=== PATIENT | female | born 1940 | race Caucasian/White ===

== ENCOUNTER 2018-05-26 08:55 | Day surgery (SDC) | payer MEDICARE, SELFPAY | END 2018-05-26 16:03 | disposition home or self-care (01) | PROVIDERS: Family Provider Family Medicine; PCP Family Medicine; Visit Provider Internal Medicine Cardiovascular Disease | DX: I25.10 Atherosclerotic heart disease of native coronary artery without angina pectoris (principal); I34.2 Nonrheumatic mitral (valve) stenosis; I34.0 Nonrheumatic mitral (valve) insufficiency; I48.0 Paroxysmal atrial fibrillation; I12.9 Hypertensive chronic kidney disease with stage 1 through stage 4 chronic kidney disease, or unspecified chronic kidney disease; N18.3 Chronic kidney disease, stage 3 (moderate); E78.5 Hyperlipidemia, unspecified; I27.20 Pulmonary hypertension, unspecified; M19.90 Unspecified osteoarthritis, unspecified site; E03.9 Hypothyroidism, unspecified; K21.9 Gastro-esophageal reflux disease without esophagitis; G47.33 Obstructive sleep apnea (adult) (pediatric); Z79.51 Long term (current) use of inhaled steroids; Z79.02 Long term (current) use of antithrombotics/antiplatelets; Z79.82 Long term (current) use of aspirin; Z79.899 Other long term (current) drug therapy | CPT/HCPCS: 93458; 99152; 99153; J7040; C1769; C1894; Q9967 ==

== ENCOUNTER → 2018-12-07 14:06 | Outpatient (CLI) | payer MEDICARE, SELFPAY ==
[2018-12-07 13:08] VITALS: BMI 42.3
[2018-12-07 16:21] LABS: Absolute Lymphocyte Count 2.38 X10^3/ul (0.83-4.51); Basophil# 0.04 X10^3/uL; Basophil% 0.4 % (0-1); Eosinophils% 2.1 % (0-5); Hematocrit 39.8 % (37-47); Hemoglobin 11.8 g/dl (12.0-15.0); Lymphocyte # 2.38 X10^3/ul (4.0); Lymphocyte % 24.6 % (19-41); Mean Corp Hgb Conc 29.6 g/gl (32-36); Mean Corpuscular Hgb 27.4 pg (27.0-32.0); Mean Corpuscular Volume 92.3 fL (81-99); Monocyte# 0.98 X10^3/uL; Monocyte% 10.1 % (0-10); Neutrophil # 6.03 X10^3/uL (2.7-7.7); Neutrophil % 62.4 % (47-70); Platelet Count 331 K/mm3 (150-450); RBC Distribution Width CV 14.6 % (11.6-14.6); RBC Distribution Width SD 47.8 fl (35.1-43.9); Red Blood Count 4.31 M/mm3 (4.2-5.4); White Blood Count 9.7 K/mm3 (4.4-11.0)
[2018-12-07 16:24] LABS: POSITIVE COUNT NO; POSITIVE DIFFERENTIAL NO; POSITIVE MORPHOLOGY NO
[2018-12-07 16:31] LABS: Anion Gap 10 (5-15); BUN 17 mg/dL (7-18); BUN/Creat Ratio 13.7 RATIO (10-20); Calcium,Total 8.4 mg/dL (8.5-10.1); Chloride 106 mmol/L (98-107); Creatinine, Serum 1.24 mg/dL (0.55-1.02); EST Glomerular Filtration Rate 44 mL/min (>60); Est Glom Filt Rate - Afr Amer 54 mL/min (>60); Glucose 93 mg/dL (74-106); Potassium 4.2 mmol/L (3.5-5.1); Sodium Level 143 mmol/L (136-145)
[2018-12-07 16:58] LABS: BNP,B-Type NATRIURETIC PEPTIDE 133.7 pg/mL (0-100)
== END ==
PROVIDERS: Family Provider Family Medicine; PCP Family Medicine; Visit Provider Physician Assistant Medical
DX: E78.5 Hyperlipidemia, unspecified (principal); I10 Essential (primary) hypertension; I25.10 Atherosclerotic heart disease of native coronary artery without angina pectoris; I27.20 Pulmonary hypertension, unspecified; I48.91 Unspecified atrial fibrillation; R06.00 Dyspnea, unspecified; I34.2 Nonrheumatic mitral (valve) stenosis
CPT/HCPCS: 36415; 80048; 83880; 85025

== ENCOUNTER → 2018-12-09 12:30 | Outpatient (CLI) | payer MEDICARE, SELFPAY ==
[2018-12-07 13:08] VITALS: BMI 42.3
== END ==
PROVIDERS: Family Provider Family Medicine; PCP Family Medicine; Referring Provider Physician Assistant Medical; Visit Provider Physician Assistant Medical
DX: I48.91 Unspecified atrial fibrillation (principal); R06.00 Dyspnea, unspecified
CPT/HCPCS: 93225; 93226

== ENCOUNTER → 2019-01-18 | Outpatient (CLI) | payer MEDICARE, SELFPAY ==
[2019-01-18 13:38] VITALS: BMI 41.3
--- NOTE | 2019-01-18 15:20 | RAD_ITS ---
STUDY: X-RAY CHEST REASON FOR EXAM: Female, 78 years old. Shortness of breath with atrial fibrillation. TECHNIQUE: PA and lateral views of the chest. COMPARISON: January 28, 2017. FINDINGS: The lungs are clear and expanded. There is no demonstrated pleural abnormality. Normal size heart. Normal mediastinum and kain. Normal visualized pulmonary arteries. There is atherosclerotic calcification of the aortic arch with tortuosity. There is mild dextroscoliosis and degenerative changes of the thoracic spine. There is degenerative osteoarthritis of the bilateral shoulders. There is no demonstrated abnormality of the visualized soft tissue structures of the upper abdomen. RAD/Chest PA and Lateral IMPRESSION: No acute cardiopulmonary disease or major interval change. Electronically Signed: Mark Sky DO at 16:17 EDT Tel [phone], Service support ,
[2019-01-18 16:37] LABS: Anion Gap 3 (5-15); BUN 24 mg/dL (7-18); BUN/Creat Ratio 19.5 RATIO (10-20); Calcium,Total 8.5 mg/dL (8.5-10.1); Chloride 109 mmol/L (98-107); Creatinine, Serum 1.23 mg/dL (0.55-1.02); EST Glomerular Filtration Rate 45 mL/min (>60); Est Glom Filt Rate - Afr Amer 54 mL/min (>60); Glucose 91 mg/dL (74-106); Potassium 4.1 mmol/L (3.5-5.1); Sodium Level 140 mmol/L (136-145)
== END | disposition home or self-care (01) ==
PROVIDERS: Family Provider Family Medicine; PCP Family Medicine; Referring Provider Physician Assistant Medical; Visit Provider Physician Assistant Medical
DX: I10 Essential (primary) hypertension (principal); I25.10 Atherosclerotic heart disease of native coronary artery without angina pectoris; I48.0 Paroxysmal atrial fibrillation
CPT/HCPCS: 36415; 71046; 80048

== ENCOUNTER 2019-01-19 09:50 | Day surgery (SDC) | payer MEDICARE, SELFPAY ==
--- NOTE | 2019-01-15 09:50 | HP_ITS ---
Intake Intake Visit Reasons: left knee Chief Complaint: f/u left knee Allergies duloxetine [From Cymbalta] Allergy (Verified 09/10/18 09:19) Unknown tramadol Allergy (Verified 09/10/18 09:19) unknown Medications citalopram 40 mg tablet 20 mg PO DAILY 06/29/18 [History Confirmed 11/16/18] folic acid 1 mg tablet 1 mg PO DAILY 06/29/18 [History Confirmed 11/16/18] hydroxychloroquine 200 mg tablet 200 mg PO DAILY tab 06/29/18 [History Confirmed 11/16/18] meloxicam 7.5 mg tablet 7.5 mg PO DAILY 06/29/18 [History Confirmed 11/16/18] methocarbamol 500 mg tablet 500 mg PO ONCE 06/29/18 [History Confirmed 11/16/18] tramadol 50 mg tablet 50 mg PO Q8H PRN #30 tab 09/15/18 [Rx Confirmed 11/16/18] isoniazid 300 mg tablet 300 mg PO DAILY 10/20/18 [History Confirmed 11/16/18] HPI left knee: Surgical H&P: Yes Details: Parts of this documentation were recorded by a scribe, this documentation accurately reflects the service provided and the decisions made by me, Cee Miller, 01/15/19 0910. AUGUSTIN SANCHEZ is a 65 year old F here today for left knee pain that patient has had since 06/2018. Patient has been receiving injections and using bracing and has been getting some relief from this and was seen by dr. wheeler in nov for the knee where he recommended continuing conservative tx. Patient has a large palpable cyst to the posterior knee and has painful clicking at the anterior lower patella. Has had MRI in 10/2018 of the left knee. Last injection was in September of 2018. ROS Const Reports system reviewed and no additional complaints, except as docu Eyes Reports system reviewed and no additional complaints, except as docu ENT Reports system reviewed and no additional complaints, except as docu Card Reports system reviewed and no additional complaints, except as docu Resp Reports system reviewed and no additional complaints, except as docu GI Reports system reviewed and no additional complaints, except as docu Musc Reports as per HPI Skin/Breast Reports system reviewed and no additional complaints, except as docu Neuro Yes system reviewed and no additional complaints, except as docu Psych Reports system reviewed and no additional complaints, except as docu Endo Reports system reviewed and no additional complaints, except as docu Obdulio/Lymph Reports system reviewed and no additional complaints, except as docu Aller/Immun Reports system reviewed and no additional complaints, except as docu Ortho Exam Left Knee Knee ROM: Yes ROM-Extension -20 to 0, Yes ROM-Flexion 0-140 Examination: Yes med jt line tenderness, Yes Pain with flexion Assessment & Plan Problems 1. Derangement of medial meniscus of left knee M23.304 2. 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 Closed subchondral insufficiency fracture of condyle of femur M84.453A Plan Reviewed recent MRI and explained that there is large Moraes's cyst with bony edema with insufficient fracture noted. Her treatment options are do nothing, brace use, steroid injection or gel injections, PT, oral nsaids or knee arthroscopy. Reviewed the surgical procedure, non weight bearing post op for two weeks and her ability to walk during her overseas travel in March and patient has failed conservative treatment. Instructed to stop taking Meloxicam. Reviewed the pre-operative plans with the patient. Risks and benefits of the procedure were fully explained, including but not limited to infection, neurovascular injury, continued pain, arthritis, stiffness, need for further surgery, re-injury, DVT, PE, general risks of anesthesia, and loss of limb or life. The patient understands all the risks and does wish to proceed with written consent. Follow up post op or sooner if pain, swelling, numbness or associated symptoms, or concerns develop. All questions answered. Patient in agreement of plan. 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
[2019-01-18 13:38] VITALS: BMI 41.3
--- NOTE | 2019-01-18 15:36 | HP_ITS ---
HPI HPI Surgical H&P: Yes Details: TRANG LARSON, is a 77 F who presents to the office today for a cardiovascular follow-up. She has a history of pulmonary hypertension, mitral valve disease, atrial fibrillation and obstructive sleep apnea. When I had seen patient 6 weeks ago she was concerned about her continued shortness of breath. She was noted to be in atrial fibrillation 100% of the time. We did discuss a cardioversion however she was going out of town, she has since returned and would like to proceed with a cardioversion due to her continued shortness of breath. Intake Vital Signs 01/18/19 Height 5 ft 3 in 01/18/19 Weight: 233 lb 01/18/19 Body Mass Index (BMI) 41.3 01/18/19 Blood Pressure 123/67 H 01/18/19 Blood Pressure Location Lt brachial 01/18/19 Blood Pressure Position Sitting 01/18/19 Respiratory Rate 18 01/18/19 Pulse Rate 62 01/18/19 Pulse Source Monitor 01/18/19 Pulse Ox 96 01/18/19 Body Mass Index (BMI) 42.3 Intake Visit Reasons: 6 wk f/up Wearing Apparel Folder Required: No Accompanied by: Daughter Is patient in pain?: Yes (heaviness in center of chest) Pain scale (1-10): 5 Allergies sulfasalazine [From Azulfidine] Allergy (Intermediate, Verified 01/18/19 13:46) Hives Penicillins [PCN] Allergy (Verified 01/18/19 13:46) Hives Sulfa (Sulfonamide Antibiotics) Allergy (Verified 01/18/19 13:46) Hives Medications Lansoprazole [Prevacid] 15 mg PO DAILY 01/28/17 [History Confirmed 01/18/19] Apixaban [Eliquis] 2.5 mg PO BID tab 07/31/17 [Rx Confirmed 01/18/19] lysine 500 mg tablet 500 mg PO DAILY PRN 05/18/18 [History Confirmed 01/18/19] gabapentin 300 mg capsule 300 mg PO TIDCM PRN 09/21/18 [History Confirmed 01/18/19] atorvastatin 20 mg tablet 20 mg PO QDAY #90 tab 10/08/18 [Rx Confirmed 01/18/19] flecainide 100 mg tablet 100 mg PO BID #180 tab 10/08/18 [Rx Confirmed 01/18/19] diltiazem CD 120 mg capsule,extended release 24 hr 120 mg PO DAILY #90 cap 10/12/18 [Rx Confirmed 01/18/19] furosemide 40 mg tablet 40 mg PO QDAY PRN tab 12/07/18 [History Confirmed 01/18/19] levothyroxine 112 mcg tablet 112 mcg PO DAILY 12/07/18 [History Confirmed 01/18/19] montelukast 10 mg tablet 10 mg PO QPM 12/07/18 [History Confirmed 01/18/19] Ejection fraction %: 60 to 64 PFSH Medical History Nonrheumatic mitral (valve) stenosis (Chronic) CKD (chronic kidney disease) stage 3, GFR 30-59 ml/min (Chronic) Atherosclerotic heart disease of [place] coronary artery without angina pectoris (Chronic) Nonrheumatic mitral valve regurgitation (Chronic) Osteoarthritis (Chronic) Hypothyroid (Chronic) Arthritis (Chronic) GERD (gastroesophageal reflux disease) (Chronic) Asthma (Chronic) Long-term use of high-risk medication (Chronic) Dyspnea, unspecified (Chronic) PABLO (obstructive sleep apnea) (Chronic) Atrial fibrillation (Chronic) Pulmonary hypertension (Chronic) HLD (hyperlipidemia) (Chronic) HTN (hypertension) (Chronic) History of hysterectomy (Resolved) ODILIA (acute kidney injury) (Inactive) Encounter for monitoring anti-arrhythmic therapy (Inactive) Renal insufficiency (Inactive) Surgical History History of bilateral knee replacement (Resolved) History of cardiac catheterization (Resolved) History of carpal tunnel surgery (Resolved) History of cataract removal with insertion of prosthetic lens (Resolved) History of cholecystectomy (Resolved) History of rotator cuff surgery (Resolved) Tumor of ovary (Resolved) Family History Mother Hypertension Myocardial infarction Sister Diabetes Paroxysmal atrial fibrillation Brother CVA (cerebral vascular accident) Alcohol abuse Cancer Liver CAD (coronary artery disease) Father Alzheimer disease Brother CAD (coronary artery disease) CABG Social History Smoking Status: Never smoker second hand exposure: No alcohol intake: never substance use type: does not use caffeine: Yes Type: coffee Number of servings: 2 Assessment & Plan 1. Paroxysmal atrial fibrillation I48.0 Plan flecaide dose needs refill Orders Orders: Cardioversion Today Basic Metabolic Profile (BMP) Today Chest PA and Lateral Today 2. Atherosclerosis of [place] coronary artery of [place] heart without angina pectoris I25.10 Plan Stable, from a cardiac standpoint patient does not have any symptoms of angina. We recommend that they continue with current aggressive medical management and risk factor modification. Orders Orders: Cardioversion Today Basic Metabolic Profile (BMP) Today Chest PA and Lateral Today 3. Essential hypertension I10 Plan Blood pressure is well controlled on current medications, we do not recommend any changes at this time. Orders Orders: Cardioversion Today Basic Metabolic Profile (BMP) Today Chest PA and Lateral Today 4. Hyperlipidemia, unspecified hyperlipidemia type E78.5 Plan Patient will continue with her low-dose statin 5. Nonrheumatic mitral (valve) stenosis I34.2 Plan Patient has been evaluated by CT surgery, they did not feel that her valve warranted surgery at that time. Do not feel that a repeat echocardiogram needs done at this time. For now we will continue to monitor Plan Detail Follow Up 3 Months (MMM) 1 Year (PFM) 01/18/19 (1 week EKG) Coding Level of Care Code Off vis,est,level 3 Diagnoses Paroxysmal atrial fibrillation I48.0 ??Atrial fibrillation type: paroxysmal Atherosclerosis of [place] coronary artery of [place] heart without angina pectoris I25.10 ??[place] vs. transplanted heart: [place] heart Essential hypertension I10 ??Hypertension type: essential hypertension Hyperlipidemia, unspecified hyperlipidemia type E78.5 ??Hyperlipidemia type: unspecified Nonrheumatic mitral (valve) stenosis I34.2 Coding Level of Care Code Off vis,est,level 3 Diagnoses Paroxysmal atrial fibrillation I48.0 ??Atrial fibrillation type: paroxysmal Atherosclerosis of [place] coronary artery of [place] heart without angina pectoris I25.10 ??[place] vs. transplanted heart: [place] heart Essential hypertension I10 ??Hypertension type: essential hypertension Hyperlipidemia, unspecified hyperlipidemia type E78.5 ??Hyperlipidemia type: unspecified Nonrheumatic mitral (valve) stenosis I34.2 Supplemental Info Supplemental Information She had a transthoracic echocardiogram on 10/01/2017. The results are as noted below. Interpretation Summary Left ventricular systolic function is normal. The estimated ejection fraction is 60 %. The left atrium is moderately enlarged. There is moderate to severe mitral annular calcification. Extension of the mitral annular calcification onto the mitral valve leaflets. Mild-Moderate mitral valve stenosis. Mild-Moderate (1-2+) mitral valve insufficiency. Mild tricuspid valve insufficiency. Aortic sclerosis, no stenosis. Calcified aortic root. Right ventricular systolic pressure estimated to be 43 mmHg c/w pulmonary hypertension. Transmitral diastolic flow velocities suggest diastolic dysfunction (pseudonormal pattern). She had a transesophageal echocardiogram performed on 04/22/2017. The results are as noted below. Interpretation Summary Left ventricular systolic function is normal. The estimated ejection fraction is 65 %. Normal systolic function. The left atrium is mildly enlarged. There is no sponatenous contrast in the left atrium. No thrombus is detected in the left atrial appendage. There is moderate to severe mitral annular calcification. Extension of the mitral annular calcification onto the posterior mitral valve leaflet. Mild-Moderate mitral valve stenosis. Moderate to moderately-severe mitral valve regurgitation. Moderate (2+) eccentric tricuspid valve insufficiency. Mild diffuse aortic valve thickening. Calcified aortic root. Normal descending aorta. Bubble contrast study negative for right to left interatrial shunt. She had a right heart catheterization performed on 03/28/2017. The results are as noted below. RIGHT HEART ASSESSMENT Thermal CC: 5.76 Thermal Cl: 2.76 Marcell CC: 6.29 Marcell Cl: 3.01 PW: 21/34 18 PA: 45/8 26 RV: 51/3 10 RA: 8/6 4 PVR: 111 Right Heart pressures - eleted Pulmonary Hypertension Intracardiac shunting: None VALVE FINDINGS: Moderate to severe mitral annular calcification AIR REST ECG 10:55:59 ECG 11:38:13 RA 8/6 (4) SV 12:08:48 RV5I/3, 10 12:09:29 PA 45/8 (26) PA 12:10:07 [place] [address] (18) PV 12:10:26 Type SV C0(I/m) CI(I/m/ HR Time AIR REST Thermal 91.40 5.76 2.76 63 10:55:59 Marcell 99.80 6.29 3.01 63 10:55:59 Label % 02 Pres/Loc Time AIR REST AC 94 PV 12:20:43 IVC 66 SV 12:21:07 SVC 63 12:21:14 PA 63 PA 12:21:20 She had a previous cardiac catheterization performed at [facility] in [facility] on 06/25/2016. Per the report this was performed via the right radial artery. CORONARY_ANGlO/FINDINGS Discrete 55% ostial lesion in 1st diagonal Luminal Irregularities 10% proximal lesion in circumflex Tubular 25% proximal lesion in RCA Ventricular Function: LV Gram? 65% EF with normal wall motion Valve Function: Valve functions within normal limits. Dominance: < Right Dominant She had a 30 day event monitor performed and was reported on 07/20/2017 is demonstrating sinus rhythm with episodes of paroxysmal atrial fibrillation She underwent CT surgery consultation at [facility] on 05/14/2017. Per the report it was recommended that she continue medical management and pursue additional nonvalvular related issues for her shortness of breath and dyspnea including noncardiac issues. She was told she was not an ideal candidate for CT surgery with respect to her valvular heart disease based upon her significant calcification involving her mitral valve apparatus. Diagnostics Electrocardiogram 12/07/18 Echocardiogram 10/01/17 Cardiac Catheterization 05/26/18
[2019-01-19 08:06] VITALS: BMI 41.3
--- NOTE | 2019-01-19 12:59 | PCM.OPRPT ---
Problem List (1) Atrial fibrillation Status: Chronic Qualifiers: Atrial fibrillation type: persistent Qualified Code(s): I48.1 - Persistent atrial fibrillation Report of Operation Date of Procedure: 01/19/19 Pre-Operative Diagnosis: Atrial fibrillation Post-Operative Diagnosis: Atrial fibrillation Surgery/Procedure Performed:: Synchronized biphasic DC cardioversion Description of Surgical Findings:: Synchronized biphasic DC cardioversion Type of Anesthesia:: IV Sedation Anesthesiologist: Israel Sanchez Special Medications: Propofol 60 mg IV push total Specimen's removed: N/A Description of Procedure: Procedure: Synchronized Biphasic DC Cardioversion Indications: Atrial fibrillation Consent: [Per the Patient] Anesthesia: per Dr. Sanchez of pulmonology and critical care medicine with propofol 60 mg IV push total Procedure: Synchronized Biphasic DC Cardioversion: 200 J x1: Result: Atrial fibrillation Synchronized biphasic DC cardioversion: 300 J x1: Result: Sinus rhythm Complications: no apparent complications This note was generated with That{img} dictation software. It may contain incorrect words, spelling, and punctuation that were not noted in checking the note before signing. - Complications No apparent complications - Admit VTE Documentation VTE Present on Admission: No VTE Mechan Device Prophylaxis: None VTE Pharm Prophylaxis ordered?: No Reason prophylaxis not ordered:: Treatment Not Indicated - Patient on oral systemic anticoagulant therapy
--- NOTE | 2019-01-19 14:03 | PCM.OP.PRO ---
Problem List (1) Asthma Status: Chronic (2) Atherosclerotic heart disease of [place] coronary artery without angina pectoris Status: Chronic Qualifiers: [place] vs. transplanted heart: [place] heart Qualified Code(s): I25.10 - Atherosclerotic heart disease of [place] coronary artery without angina pectoris (3) Atrial fibrillation Status: Chronic Qualifiers: Atrial fibrillation type: persistent Qualified Code(s): I48.1 - Persistent atrial fibrillation (4) CKD (chronic kidney disease) stage 3, GFR 30-59 ml/min Status: Chronic (5) GERD (gastroesophageal reflux disease) Status: Chronic (6) HLD (hyperlipidemia) Status: Chronic Qualifiers: Hyperlipidemia type: unspecified Qualified Code(s): E78.5 - Hyperlipidemia, unspecified (7) HTN (hypertension) Status: Chronic Qualifiers: Hypertension type: essential hypertension Qualified Code(s): I10 - Essential (primary) hypertension (8) Hypothyroid Status: Chronic (9) Long-term use of high-risk medication Status: Chronic (10) Nonrheumatic mitral (valve) stenosis Status: Chronic (11) Nonrheumatic mitral valve regurgitation Status: Chronic (12) PABLO (obstructive sleep apnea) Status: Chronic (13) Osteoarthritis Status: Chronic (14) Pulmonary hypertension Status: Chronic Procedure Report Date of Procedure: 01/19/19 - Conscious sedation CONSCIOUS SEDATION REPORT BRIEF HISTORY OF PRESENT ILLNESS: The patient is an 78-year-old female who presented to [facility] for an elective outpatient cardioversion due to underlying atrial fibrillation. The patient reports no PO intake since midnight. The patient does have a history of obstructive sleep apnea. The patient reports no history of smoking and COPD. The patient denies any recent constitutional symptoms such as fevers, chills, nausea or vomiting. The patient denies previous anesthetic complications. Patient's last known ejection fraction was 60%. Patient does have a history of a previous cardioversion without complication. PHYSICAL EXAMINATION: VITAL SIGNS: Reviewed and were acceptable. GENERAL: The patient is a female, in no apparent distress, speaking in full sentences. HEENT: Normocephalic, atraumatic. Mucous membranes are moist and pink. Good mouth opening noted. Trachea is midline. Good neck mobility. MP IV CHEST: S1, S2 irregularly irregular. No murmurs, rubs or gallops were noted. LUNGS: Clear to auscultation bilaterally without appreciable wheezes, rales or rhonchi. ABDOMEN: Soft, nontender, nondistended. Positive bowel sounds. EXTREMITIES: There is no clubbing, cyanosis or edema. ASA Class: II DESCRIPTION OF PROCEDURE: After confirmation of informed consent, the patient's anesthesia plan was reviewed in detail. Propofol was chosen. Risks and benefits were reviewed and the patient agreed to proceed. At 12:38 PM, the patient was given 40 mg of propofol. The patient required a total of 60 mg of propofol throughout the procedure to achieve appropriate sedation. The patient achieved an appropriate level of sedation and received 2 attempt s synchronized cardioversion, at 200 J and [address] Osorio at the bedside. This was successful in achieving normal sinus rhythm. The patient was monitored until 12:44 PM, at which time the patient reached their baseline mental status and function. The patient tolerated the procedure well. COMPLICATIONS: None ESTIMATED BLOOD LOSS: None RECOMMENDATIONS: Okay to recover in usual fashion. Code Visit 9xxxx: Other Procedure See Report - [id number]
--- NOTE | 2019-01-19 14:07 | PRO.PCM_ITS ---
Problem List (1) Asthma Status: Chronic (2) Atherosclerotic heart disease of [place] coronary artery without angina pe ctoris Status: Chronic Qualifiers: [place] vs. transplanted heart: [place] heart Qualified Code(s): I25.10 - Atherosclerotic heart disease of [place] coronary artery without angina pectoris (3) Atrial fibrillation Status: Chronic Qualifiers: Atrial fibrillation type: persistent Qualified Code(s): I48.1 - Persistent atrial fibrillation (4) CKD (chronic kidney disease) stage 3, GFR 30-59 ml/min Status: Chronic (5) GERD (gastroesophageal reflux disease) Status: Chronic (6) HLD (hyperlipidemia) Status: Chronic Qualifiers: Hyperlipidemia type: unspecified Qualified Code(s): E78.5 - Hyperlipidemia, unspecified (7) HTN (hypertension) Status: Chronic Qualifiers: Hypertension type: essential hypertension Qualified Code(s): I10 - Es sential (primary) hypertension (8) Hypothyroid Status: Chronic (9) Long-term use of high-risk medication Status: Chronic (10) Nonrheumatic mitral (valve) stenosis Status: Chronic (11) Nonrheumatic mitral valve regurgitation Status: Chronic (12) PABLO (obstructive sleep apnea) Status: Chronic (13) Osteoarthritis Status: Chronic (14) Pulmonary hypertension Status: Chronic Procedure Report Date of Procedure: 01/19/19 - Conscious sedation CONSCIOUS SEDATION REPORT BRIEF HISTORY OF PRESENT ILLNESS: The patient is an 78-year-old female who presented to [facility] for an elective outpatient cardioversion due to underlying atrial fibrillation. The patient reports no PO intake since midnight. The patient does have a history of obstructive sleep apnea. The patient reports no history of smoking and COPD. The patient denies any recent constitutional symptoms such as fevers, chills, nausea or vomiting. The patient denies previous anesthetic complications. Patient's last known ejection fraction was 60%. Patient does have a history of a previous cardioversion without complication. PHYSICAL EXAMINATION: VITAL SIGNS: Reviewed and were acceptable. GENERAL: The patient is a female, in no apparent distress, speaking in full sentences. HEENT: Normocephalic, atraumatic. Mucous membranes are moist and pink. Good mouth opening noted. Trachea is midline. Good neck mobility. MP IV CHEST: S1, S2 irregularly irregular. No murmurs, rubs or gallops were noted. LUNGS: Clear to auscultation bilaterally without appreciable wheezes, rales or rhonchi. ABDOMEN: Soft, nontender, nondistended. Positive bowel sounds. EXTREMITIES: There is no clubbing, cyanosis or edema. ASA Class: II DESCRIPTION OF PROCEDURE: After confirmation of informed consent, the patient's anesthesia plan was reviewed in detail. Propofol was chosen. Risks and benefits were reviewed and the patient agreed to proceed. At 12:38 PM, the patient was given 40 mg of propofol. The patient required a total of 60 mg of propofol throughout the procedure to achieve appropriate sedation. The patient achieved an appropriate level of sedation and received 2 attempt s synchronized cardioversion, at 200 J and [address] Osorio at the bedside. This was successful in achieving normal sinus rhythm. The patient was monitored until 12:44 PM, at which time the patient reached their baseline mental status and function. The patient tolerated the procedure well. COMPLICATIONS: None ESTIMATED BLOOD LOSS: None RECOMMENDATIONS: Okay to recover in usual fashion. Code Visit 9xxxx: Other Procedure See Report - [id number]
== END 2019-01-19 13:45 | disposition home or self-care (01) ==
LOC: CLSP 09:51
PROVIDERS: Family Provider Family Medicine; PCP Family Medicine; Referring Provider Internal Medicine Cardiovascular Disease; Visit Provider Internal Medicine Cardiovascular Disease
DX: I48.0 Paroxysmal atrial fibrillation (principal); I25.10 Atherosclerotic heart disease of native coronary artery without angina pectoris; E78.5 Hyperlipidemia, unspecified; I12.9 Hypertensive chronic kidney disease with stage 1 through stage 4 chronic kidney disease, or unspecified chronic kidney disease; N18.3 Chronic kidney disease, stage 3 (moderate); M19.90 Unspecified osteoarthritis, unspecified site; E03.9 Hypothyroidism, unspecified; K21.9 Gastro-esophageal reflux disease without esophagitis; J45.909 Unspecified asthma, uncomplicated; G47.33 Obstructive sleep apnea (adult) (pediatric); I27.20 Pulmonary hypertension, unspecified; Z79.02 Long term (current) use of antithrombotics/antiplatelets; Z79.899 Other long term (current) drug therapy
CPT/HCPCS: 92960; 93005; J7040

== ENCOUNTER 2019-12-14 10:50 | Day surgery (SDC) | payer MEDICARE, SELFPAY ==
[2019-12-13 10:04] VITALS: BMI 41.1
--- NOTE | 2019-12-13 10:55 | RAD_ITS ---
STUDY: X-RAY CHEST REASON FOR EXAM: Female, 79 years old. cough, shortness of breath x 1 week TECHNIQUE: Frontal and lateral views of the chest. COMPARISON: 01/18/2019 FINDINGS: Left midlung atelectasis. There is no demonstrated pleural abnormality. Normal size heart. Normal mediastinum and kain. Normal visualized pulmonary arteries. Normal visualized aortic arch and descending thoracic aorta. Normal visualized thoracic spine. Normal visualized ribs, clavicles, and shoulders. Cholecystectomy clips. RAD/Chest PA and Lateral IMPRESSION: Left midlung atelectasis. Electronically Signed: Dave Leach MD at 12:44 EDT Tel , Service support ,
[2019-12-13 12:12] LABS: Anion Gap 4 (5-15); BUN 12 mg/dL (7-18); BUN/Creat Ratio 11.2 RATIO (10-20); Calcium,Total 8.6 mg/dL (8.5-10.1); Chloride 110 mmol/L (98-107); Creatinine, Serum 1.07 mg/dL (0.55-1.02); EST Glomerular Filtration Rate 52 mL/min (>60); Est Glom Filt Rate - Afr Amer 63 mL/min (>60); Glucose 76 mg/dL (74-106); Potassium 3.7 mmol/L (3.5-5.1); Sodium Level 143 mmol/L (136-145)
[2019-12-13 13:01] VITALS: BMI 41.1
--- NOTE | 2019-12-14 09:11 | PCM.HP.BLA ---
<Osito Benson - Last Filed: 12/14/19 09:11> History and Physical Date of Admission: 12/14/19 HPI History of Present Illness Details: TRANG LARSON, is a 79 white female who presents to the [facility] today for an outpatient cardioversion. She has a history of pulmonary hypertension, mitral valve disease, atrial fibrillation and obstructive sleep apnea. Pt sts that she has been in Afib since last friday. She she notes this to be true d/t her HR monitor at home. She notes that she has had a cough since Friday. She was in to see her PCP and in the [facility]. She was given prednisone. She feels the Afib this past week because she has been more SOB with exertion, especially when she is carrying something. She does not have orthopnea. She does occasionally have dizziness- she feels that this is from her coughing. She does not have any chest pain. She does not have any edema. Her dtr has had a lung transplant last week. Intake Vital Signs: See EMR Intake Visit Reasons: DCCV Non Destructive Evaluation Manager Required: No Is patient in pain?: No Allergies sulfasalazine [From Azulfidine] Allergy (Intermediate, Verified 12/13/19 10:04) Hives Penicillins [PCN] Allergy (Verified 12/13/19 10:04) Hives Sulfa (Sulfonamide Antibiotics) Allergy (Verified 12/13/19 10:04) Hives Medications See EMR [facility] Medical History History of cardioversion (Chronic ~01/2019) Hypothyroidism (Chronic) Paroxysmal atrial fibrillation (Acute) Essential hypertension (Chronic) Nonrheumatic mitral (valve) stenosis (Chronic) CKD (chronic kidney disease) stage 3, GFR 30-59 ml/min (Chronic) Atherosclerotic heart disease of [place] coronary artery without angina pectoris (Chronic) Nonrheumatic mitral valve regurgitation (Chronic) GERD (gastroesophageal reflux disease) (Chronic) Asthma (Chronic) Long-term use of high-risk medication (Chronic) Dyspnea, unspecified (Chronic) PABLO (obstructive sleep apnea) (Chronic) Pulmonary hypertension (Chronic) HLD (hyperlipidemia) (Chronic) Arthritis (Chronic) Osteoarthritis (Chronic) ODILIA (acute kidney injury) (Inactive) Encounter for monitoring anti-arrhythmic therapy (Inactive) Renal insufficiency (Inactive) Surgical History History of cholecystectomy (Resolved) History of hysterectomy (Resolved) History of bilateral knee replacement (Resolved) History of cardiac catheterization (Resolved) History of carpal tunnel surgery (Resolved) Tumor of ovary (Resolved) History of cataract removal with insertion of prosthetic lens (Resolved) History of rotator cuff surgery (Resolved) Family History Mother Hypertension Myocardial infarction Sister Diabetes Paroxysmal atrial fibrillation Brother CVA (cerebral vascular accident) Alcohol abuse Cancer Liver CAD (coronary artery disease) Father Alzheimer disease Brother CAD (coronary artery disease) CABG Social History (Updated 12/13/19 @ 15:09 by AQUILES Rodriguez) Smoking Status: Never smoker second hand exposure: No alcohol intake: never substance use type: does not use caffeine: Yes Type: coffee Number of servings: 2 ROS Const Const: Positive for fatigue; negative for weakness, fever(s) or headache(s) Eyes Eyes: Negative for blind spots, loss of peripheral vision or transient loss of vision ENT ENT: Negative for headache(s), dizziness, tinnitus or Nosebleed/epistaxis Cardio Chest Pain: No Palpitations: Yes Edema: None Muscle aches with walking: None Resp Respiratory: Positive for SOB with activity; negative for SOB at rest, SOB orthopnea\SOB lying down or Cough GI GI: Negative nausea, vomiting, heartburn or vomiting blood/hematemesis : Negative for hematuria Musc Musc: Negative for muscle aches/ myalgia Neuro Neuro: Negative for dizziness, lightheadedness, near syncope, syncope, orthostatic symptoms, headache(s) or weakness Obdulio Hematologic/Lymphatic: Negative for easy bleeding Endo Endo: Positive for fatigue Cardiology Exam Const Appearance: cooperative, no acute distress and well developed Orientation: alert, awake and oriented x3 Head Head: normocephalic and atraumatic Mouth: moist mucous membranes Eyes General: appearance normal, both eyes and all related structures Conjunctivae: conjunctivae normal Pupils: PERRL EOM: EOM intact bilaterally Neck Neck: normal visual inspection, no lymphadenopathy and no JVD Carotids: Negative bruit Neck Mass: Negative Neck mass Chest Chest inspection: normal inspection of the chest and symmetric chest movement Auscultation: Bilateral: Clear to Auscultation Cardio Palpation: normal PMI Rate: regular rate Rhythm: irregularly irregular Heart sounds: S1 normal, S2 normal and murmur; negative rub or gallop Murmur: Grade 2/6 and mid systolic GI GI: normal to inspection, soft, no hepatosplenomegaly and bowel sounds present; negative tender Neuro General: alert, awake, oriented x3, CN's II-XI intact bilaterally and moves all extremities Extremities Pulses: Normal: Right Posterior Tibial Pulse, Left Posterior Tibial Pulse, Right Radial Pulse, Left Radial Pulse Lower Extremity Edema: None: Bilateral Psych Psychological: normal affect Assessment & Plan 1. Atrial fibrillation, persistent I48.19 Plan Patient unfortunately is very symptomatic with her atrial fibrillation. It appears that this is more persistent since last week. Patient has been anticoagulated and this has not been interrupted. Her heart rate is controlled. Would like to proceed with a cardioversion for patient. She will follow-up accordingly after. 2. Atherosclerosis of [place] coronary artery of [place] heart without angina pectoris I25.10 Plan Stable, from a cardiac standpoint patient does not have any symptoms of angina. We recommend that they continue with current aggressive medical management and risk factor modification. 3. Hyperlipidemia, unspecified hyperlipidemia type E78.5 Plan Patient will continue with her low-dose statin 4. Nonrheumatic mitral (valve) stenosis I34.2 Plan This has been monitored closely. Feel that this could also be causing her shortness of breath with her atrial fibrillation. For now we will continue to monitor. 5. Essential hypertension I10 Plan Patient's blood pressure is well-controlled. We will continue to monitor. We will not make any medication regimen changes. Supplemental Info Supplemental Information She had a transthoracic echocardiogram on 10/01/2017. The results are as noted below. Interpretation Summary Left ventricular systolic function is normal. The estimated ejection fraction is 60 %. The left atrium is moderately enlarged. There is moderate to severe mitral annular calcification. Extension of the mitral annular calcification onto the mitral valve leaflets. Mild-Moderate mitral valve stenosis. Mild-Moderate (1-2+) mitral valve insufficiency. Mild tricuspid valve insufficiency. Aortic sclerosis, no stenosis. Calcified aortic root. Right ventricular systolic pressure estimated to be 43 mmHg c/w pulmonary hypertension. Transmitral diastolic flow velocities suggest diastolic dysfunction (pseudonormal pattern). She had a transesophageal echocardiogram performed on 04/22/2017. The results are as noted below. Interpretation Summary Left ventricular systolic function is normal. The estimated ejection fraction is 65 %. Normal systolic function. The left atrium is mildly enlarged. There is no spontenous contrast in the left atrium. No thrombus is detected in the left atrial appendage. There is moderate to severe mitral annular calcification. Extension of the mitral annular calcification onto the posterior mitral valve leaflet. Mild-Moderate mitral valve stenosis. Moderate to moderately-severe mitral valve regurgitation. Moderate (2+) eccentric tricuspid valve insufficiency. Mild diffuse aortic valve thickening. Calcified aortic root. Normal descending aorta. Bubble contrast study negative for right to left interatrial shunt. She had a right heart catheterization performed on 03/28/2017. The results are as noted below. RIGHT HEART ASSESSMENT Thermal CC: 5.76 Thermal Cl: 2.76 Marcell CC: 6.29 Marcell Cl: 3.01 PW: 21/34 18 PA: 45/8 26 RV: 51/3 10 RA: 8/6 4 PVR: 111 Right Heart pressures - eleted Pulmonary Hypertension Intracardiac shunting: None VALVE FINDINGS: Moderate to severe mitral annular calcification AIR REST ECG 10:55:59 ECG 11:38:13 RA 8/6 (4) SV 12:08:48 RV5I/3, 10 12:09:29 PA 45/8 (26) PA 12:10:07 [place] [id number] (18) PV 12:10:26 Type SV C0(I/m) CI(I/m/ HR Time AIR REST Thermal 91.40 5.76 2.76 63 10:55:59 Marcell 99.80 6.29 3.01 63 10:55:59 Label % 02 Pres/Loc Time AIR REST AC 94 PV 12:20:43 IVC 66 SV 12:21:07 SVC 63 12:21:14 PA 63 PA 12:21:20 She had a previous cardiac catheterization performed at [facility] in [facility] on 06/25/2016. Per the report this was performed via the right radial artery. CORONARY_ANGlO/FINDINGS Discrete 55% ostial lesion in 1st diagonal Luminal Irregularities 10% proximal lesion in circumflex Tubular 25% proximal lesion in RCA Ventricular Function: LV Gram? 65% EF with normal wall motion Valve Function: Valve functions within normal limits. Dominance: < Right Dominant Cardiac cath: 05/26/2018 CORONARY ANGIOGRAPHY DOMINANCE: Right Dominant LEFT HEART ASSESSMENT Left Ventricular Ejection Fraction: by LV Gram 70 % Normal LV wall motion Elevated Left Ventricular End Diastolic Pressure LVEDP: 28 mmHg LEFT MAIN: Angiographically normal LEFT ANTERIOR DECENDING ARTERY: PROX LAD: Mild luminal irregularities DIAGONAL 1: Ostial - 25-50 % Stenosis CIRCUMFLEX ARTERY: Mild luminal irregularities RIGHT CORONARY ARTERY: Angiographically normal VALVE FINDINGS: Normal Aortic Valve function Mitral Annular Calcification: Severe Mitral Valve Insufficiency - Grade 1 AORTIC ROOT: Angiographically normal She had a 30 day event monitor performed and was reported on 07/20/2017 is demonstrating sinus rhythm with episodes of paroxysmal atrial fibrillation She underwent CT surgery consultation at [facility] on 05/14/2017. Per the report it was recommended that she continue medical management and pursue additional nonvalvular related issues for her shortness of breath and dyspnea including noncardiac issues. She was told she was not an ideal candidate for CT surgery with respect to her valvular heart disease based upon her significant calcification involving her mitral valve apparatus. <Jerry Osorio - Last Filed: 12/14/19 12:46> History and Physical I have re-examined the patient. There are no clinical changes since date of exam.
--- NOTE | 2019-12-14 13:46 | PCM.OP.PRO ---
Procedure Report Date of Procedure: 12/14/19 CONSCIOUS SEDATION REPORT DATE OF SERVICE: December 14, 2019 BRIEF HISTORY OF PRESENT ILLNESS: The patient is an 79-year-old female who presented to [facility] for an elective outpatient cardioversion due to underlying atrial fibrillation. The patient did undergo a prior cardioversion in January 2019, during which time, the patient required 60 mg of propofol to achieve an appropriate level of sedation. The patient denies any previous anesthetic complications. She does have a history of obstructive sleep apnea, for which she reports compliance with the use of nocturnal CPAP therapy. Her last known ejection fraction was approximately 60%. The patient is currently anticoagulated on Eliquis. PHYSICAL EXAMINATION: VITAL SIGNS: Reviewed and were acceptable. GENERAL: The patient is an obese female, in no apparent distress, speaking in full sentences. HEENT: Normocephalic, atraumatic. Mucous membranes are moist and pink. Good mouth opening noted. Trachea is midline. MP IV CHEST: S1, S2 irregularly irregular. No murmurs, rubs or gallops were noted. LUNGS: Clear to auscultation bilaterally without appreciable wheezes, rales or rhonchi. ABDOMEN: Soft, nontender, nondistended. Positive bowel sounds. EXTREMITIES: There is no clubbing, cyanosis or edema. ASA Class: II DESCRIPTION OF PROCEDURE: After confirmation of informed consent, the patient's anesthesia plan was reviewed in detail. Propofol was chosen. Risks and benefits were reviewed and the patient agreed to proceed. At 1301, the patient was given 50 mg of propofol. The patient achieved an appropriate level of sedation and was given a 200 joule synchronized cardioversion by Dr. Osorio at the bedside. This was successful in achieving normal sinus rhythm. The patient was monitored until 1312, at which time she reached her baseline mental status and function. The patient tolerated the procedure well. COMPLICATIONS: None ESTIMATED BLOOD LOSS: None RECOMMENDATIONS: Okay to recover in usual fashion. 9xxxx: Other Procedure See Report - [id number]
--- NOTE | 2019-12-14 15:47 | CARDIOVERS ---
Cardioversion Cardioversion: Date: 12-14-2019 Procedure: Synchronized Biphasic DC Cardioversion Indications: Atrial fibrillation Consent: Per the Patient Anesthesia: per Dr. Luna of pulmonology and critical care medicine with propofol 50 mg IV push total Procedure: Synchronized Biphasic DC Cardioversion: 200 J x1: Result: Sinus rhythm Complications: no apparent complications This note was generated with [employer] dictation software. It may contain incorrect words, spelling, and punctuation that were not noted in checking the note before signing.
== END 2019-12-14 14:16 | disposition home or self-care (01) ==
PROVIDERS: Physician Assistant Medical; PCP Family Medicine; Referring Provider Internal Medicine Cardiovascular Disease; Visit Provider Internal Medicine Cardiovascular Disease
DX: I48.19 Other persistent atrial fibrillation (principal); I27.20 Pulmonary hypertension, unspecified; G47.33 Obstructive sleep apnea (adult) (pediatric); I12.9 Hypertensive chronic kidney disease with stage 1 through stage 4 chronic kidney disease, or unspecified chronic kidney disease; N18.3 Chronic kidney disease, stage 3 (moderate); I25.10 Atherosclerotic heart disease of native coronary artery without angina pectoris; K21.9 Gastro-esophageal reflux disease without esophagitis; J45.909 Unspecified asthma, uncomplicated; E78.5 Hyperlipidemia, unspecified; M19.90 Unspecified osteoarthritis, unspecified site
CPT/HCPCS: 36415; 71046; 80048; 92960; 93005; J7040

== ENCOUNTER → 2020-04-12 | Outpatient (CLI) | payer MEDICARE, SELFPAY ==
[2020-04-03 08:51] VITALS: BMI 41.6
[2020-04-12 11:21] VITALS: PULSE 101; PULSE 104; PULSE 62; PULSE 72; PULSE 89; PULSE 94; PULSE 95; O2SAT 92; O2SAT 94; O2SAT 95
--- NOTE | 2020-04-12 11:23 | CPS ---
Patient took very brief breaks during the 2nd, 3rd, and 4th minute. All breaks were 5 seconds or less. By the 5th minute patient was noticeably dyspneic and stated at about the 5:20 minute frida that she was very short of breath and felt like she might fall. Stopped the patient at this time and had her sit and recover. SpO2 at that time was 95%, HR 104-110.
--- NOTE | 2020-04-12 13:54 | PCM.PSN.6M ---
PSN 6 Minute Walk Test - 6 Minute Walk Test 6 Minute Walk Test: 6 Minute Walk Test PSN:6-Minute Walk Test Start: 04/12/20 11:21 Freq: Status: Active Protocol: RESP.6MINW Document 04/12/20 11:21 BRIANA (Rec: 04/12/20 11:27 BRIANA [id number]) 6 Minute Walk Test Date Performed 04/12/20 Time Performed 11:00 Height 5 ft 3 in Weight: 102.512 kg Weight in Pounds 226.[address]: Israel Sanchez Assistive device used: None Pre-test Oxygen Delivery Method Room Air Pulse Ox (%) 94 Pulse Rate (60-100 beats/min) 62 Dyspnea Edgar Scale (0-10) 0.5 Exertion Edgar Scale (6-20) 6 1st minute Oxygen Delivery Method Room Air Pulse Ox (%) 94 Pulse Rate (60-100 beats/min) 89 2nd minute Oxygen Delivery Method Room Air Pulse Ox (%) 92 Pulse Rate (60-100 beats/min) 95 Number of Rests Taken 1 3rd minute Oxygen Delivery Method Room Air Pulse Ox (%) 92 Pulse Rate (60-100 beats/min) 94 Number of Rests Taken 1 4th minute Oxygen Delivery Method Room Air Pulse Ox (%) 94 Pulse Rate (60-100 beats/min) 101 H Number of Rests Taken 1 5th minute Oxygen Delivery Method Room Air Pulse Ox (%) 95 Pulse Rate (60-100 beats/min) 104 H Dyspnea Edgar Scale (0-10) 6 Post-test Oxygen Delivery Method Room Air Pulse Ox (%) 95 Pulse Rate (60-100 beats/min) 72 Full Laps Walked 12 Partial Lap, Number of Tiles Walked 0 Total Distance Walked (ft) 708 04/12/20 11:23 Cardiopulmonary Services by Snehal Bennett Patient took very brief breaks during the 2nd, 3rd, and 4th minute. All breaks were 5 seconds or less. By the 5th minute patient was noticeably dyspneic and stated at about the 5:20 minute frida that she was very short of breath and felt like she might fall. Stopped the patient at this time and had her sit and recover. SpO2 at that time was 95%, HR 104-110. Initialized on 04/12/20 11:23 - END OF NOTE - Interpretation Interpretation: The patient was able to ambulate only 708 feet over the course of 6 minutes on room air with no assistive devices, but required 3 breaks. The patient did experience desaturation as low as 92% and had a peak heart rate of 104 bpm. These findings are consistent with a musculoskeletal limitation exercise tolerance. - Recommendations Recommendations: No supplemental oxygen is indicated at this time.
== END | disposition home or self-care (01) ==
LOC: PSN 10:51
PROVIDERS: PCP Family Medicine; Referring Provider Internal Medicine Critical Care Medicine; Visit Provider Internal Medicine Critical Care Medicine
DX: I27.20 Pulmonary hypertension, unspecified (principal); J45.909 Unspecified asthma, uncomplicated
CPT/HCPCS: 94618

== ENCOUNTER → 2020-04-18 | Outpatient (CLI) | payer MEDICARE, SELFPAY ==
[2020-04-03 08:51] VITALS: BMI 41.6
--- NOTE | 2020-04-18 14:13 | PFT ---
INTRODUCTION: The patient is an 79-year-old female that presents for pulmonary function studies secondary to a diagnosis of pulmonary hypertension. Respiratory therapy reports good patient effort. Bronchodilators were used during testing. INTERPRETATION: Forced expiration spirometry demonstrates the presence of a mild large airways obstructive ventilatory defect. There was no significant response to aerosolized bronchodilators, based upon strict ATS criteria. Spirograms are of good quality and do not plateau indicating slow emptying of the lungs. Body plethysmography was performed and reveals lung volumes to be within normal limits. Diffusing capacity by single breath CO is reduced at 67% of predicted. IMPRESSION: Irreversible mild large airways obstructive ventilatory defect with symmetric reduction in diffusing capacity.
== END | disposition home or self-care (01) ==
LOC: PSN 08:23
PROVIDERS: PCP Family Medicine; Referring Provider Internal Medicine Critical Care Medicine; Visit Provider Internal Medicine Critical Care Medicine
DX: J45.909 Unspecified asthma, uncomplicated (principal); I27.20 Pulmonary hypertension, unspecified
CPT/HCPCS: 94060; 94726; 94729

== ENCOUNTER → 2021-03-21 14:05 | Outpatient (CLI) | payer MEDICARE, SELFPAY ==
[2021-03-21 13:13] VITALS: BMI 39.4
[2021-03-21 14:55] LABS: Hematocrit 40.3 % (37-47); Hemoglobin 12.3 g/dL (12.0-15.0)
== END ==
PROVIDERS: PCP Family Medicine; Referring Provider Physician Assistant Medical; Visit Provider Physician Assistant Medical
DX: I25.10 Atherosclerotic heart disease of native coronary artery without angina pectoris (principal)
CPT/HCPCS: 36415; 85014; 85018

== ENCOUNTER → 2021-03-27 15:22 | Outpatient (CLI) | payer MEDICARE, SELFPAY ==
[2021-03-27 05:58] VITALS: BMI 38.9
[2021-03-27 16:38] LABS: Anion Gap 6 (5-15); BUN 26 mg/dL (7-18); BUN/Creat Ratio 17.8 RATIO (10-20); Calcium,Total 8.8 mg/dL (8.5-10.1); Chloride 109 mmol/L (98-107); Creatinine, Serum 1.46 mg/dL (0.55-1.02); EST Glomerular Filtration Rate 36 mL/min (>60); Est Glom Filt Rate - Afr Amer 44 mL/min (>60); Glucose 80 mg/dL (74-106); Potassium 4.4 mmol/L (3.5-5.1); Sodium Level 141 mmol/L (136-145)
== END ==
PROVIDERS: Physician Assistant; PCP Family Medicine; Referring Provider Surgery; Visit Provider Surgery
DX: I65.21 Occlusion and stenosis of right carotid artery (principal)
CPT/HCPCS: 36415; 80048

== ENCOUNTER → 2021-04-02 17:19 | Outpatient (CLI) | payer MEDICARE, SELFPAY ==
[2021-03-27 05:58] VITALS: BMI 38.9
--- NOTE | 2021-04-02 17:25 | CT_ITS ---
EXAM: CT ANGIOGRAPHY NECK WITHOUT AND WITH INTRAVENOUS CONTRAST : 1940 CLINICAL INDICATION: Right carotid stenosis TECHNIQUE: Routine carotid CT angiography protocol was performed without and with intravenous contrast. Nascet criteria using the distal ICAs for comparison were used for evaluation of stenoses. This CT exam was performed using one or more of the following dose reduction techniques: automated exposure control, adjustment of the mA and/or kV according to patient size, and/or use of iterative reconstruction technique. This report was created using [employer] report generation technology. MIP reconstructed images were created and reviewed. CONTRAST: IV 100mL [id number] COMPARISON: None. FINDINGS: VASCULATURE: RIGHT COMMON CAROTID ARTERY: Unremarkable. No occlusion or significant stenosis. No dissection. RIGHT INTERNAL CAROTID ARTERY: Calcifications in the carotid bulb bilaterally. No stenosis identified. There are also calcifications seen within the origins of the right internal carotid artery. These narrow the vessel approximately 50%. There is no high-grade stenosis. RIGHT EXTERNAL CAROTID ARTERY: Unremarkable. No occlusion. RIGHT VERTEBRAL ARTERY: Unremarkable. No occlusion or significant stenosis. No dissection. LEFT COMMON CAROTID ARTERY: Unremarkable. No occlusion or significant stenosis. No dissection. LEFT INTERNAL CAROTID ARTERY: See above. LEFT EXTERNAL CAROTID ARTERY: Unremarkable. No occlusion. LEFT VERTEBRAL ARTERY: Unremarkable. No occlusion or significant stenosis. No dissection. GREAT VESSELS OF AORTIC ARCH: Unremarkable. Normal anatomy, patent. NECK: BONES/JOINTS: Unremarkable. SOFT TISSUES: Unremarkable. LUNG APICES: Clear. CAROTID STENOSIS REFERENCE USING NASCET CRITERIA: % ICA stenosis = (1 - narrowest ICA diameter/diameter of distal cervical ICA) x 100. Moderate - 50-69% stenosis. Severe - 70-94% stenosis. Near occlusion - 95-99% stenosis. Occluded - 100% stenosis. CT/CTA Neck W/WO Contrast IMPRESSION: Mild stenosis of the origin the right internal carotid artery of approximately 50% due to calcific plaque. No high-grade stenosis identified. Individualized dose optimization techniques were used for this CT. at 0411 Reported and signed by: Dyllan Lyon MD Electronically Signed: Dyllan Lyon MD at 4:09 EDT Tel , Service support ,
== END ==
PROVIDERS: PCP Family Medicine; Referring Provider Physician Assistant; Visit Provider Physician Assistant
DX: I65.21 Occlusion and stenosis of right carotid artery (principal)
CPT/HCPCS: 70498; Q9967

== ENCOUNTER → 2021-05-11 13:58 | Outpatient (CLI) | payer MEDICARE, SELFPAY ==
[2021-03-27 05:58] VITALS: BMI 38.9
--- NOTE | 2021-05-11 13:59 | CDU_ITS ---
Reason For Study: Carotid stenosis Rt. Velocities/BP Lt. Velocities/BP Prox CCA 76/14.7 cm/sec. Prox CCA 119.3/31.6 cm/sec. Mid CCA 82.5/19.9 cm/sec. Mid CCA 102.8/24.3 cm/sec. Dist CCA 87.7/23.9 cm/sec. Dist CCA 99.2/26.1 cm/sec. Prox ICA 139.6/32.8 cm/sec. Prox ICA 146.7/38.9 cm/sec. Mid ICA 322.6/83.5 cm/sec. Mid ICA 135/38.2 cm/sec. Dist ICA 127/23.6 cm/sec. Dist ICA 134.5/40.2 cm/sec. Rt. ICA/CCA = 3.91. Lt. ICA/CCA = 1.43. Prox ECA 104.7/17.3 cm/sec. Prox ECA 124.7/13.3 cm/sec. Rt. Vert. 56.9/11.4 cm/sec. Lt. Vert. 58.6/16.8 cm/sec. Right Extracranial There is intimal thickening but no significant atherosclerotic plaque noted in the right common carotid artery. There is heterogeneous, irregular atherosclerotic plaque noted in the right internal carotid artery. The atherosclerotic plaque causes acoustic shadowing. The right internal carotid artery is very tortuous. There is homogeneous, smooth atherosclerotic plaque noted in the right external carotid artery. Antegrade flow is noted in the right vertebral artery. Left Extracranial There is intimal thickening but no significant atherosclerotic plaque noted in the left common carotid artery. There is heterogeneous, irregular atherosclerotic plaque noted in the left internal carotid artery. The left internal carotid artery is very tortuous. There is intimal thickening but no significant atherosclerotic plaque noted in the left external carotid artery. Antegrade flow is noted in the left vertebral artery. Procedure Carotid Duplex [id number]. This is a Carotid Duplex examination using B-mode, color flow and specral Doppler. Prelim called to Marilee STANLEY. Exam performed in department. VL/Carotid Duplex Ultrasound Interpretation Summary Heterogenous irregular plaque at the proximal right internal carotid artery wit h greater than 70% stenosis. Less than 70% stenosis right external carotid artery Irregular heterogenous plaque at the proximal left internal carotid artery with 50 to 69% stenosis Less than 50% stenosis left external carotid artery Patent and antegrade vertebral arteries bilaterally Ordering Physician: Jaya Watters Referring Physician: Carrillo Franklin Performed By: Nicole Prather RVT
== END ==
PROVIDERS: PCP Family Medicine; Referring Provider Surgery; Visit Provider Surgery
DX: I65.21 Occlusion and stenosis of right carotid artery (principal)
CPT/HCPCS: 93880

== ENCOUNTER 2021-05-26 09:15 | Emergency (ER) | payer MEDICARE, SELFPAY ==
[2021-05-26 09:17] VITALS: BP 135/34; PULSE 40; RESP 16; TEMP 36.8; O2SAT 98; BMI 38.0
--- NOTE | 2021-05-26 09:38 | RAD_ITS ---
STUDY: X-RAY CHEST REASON FOR EXAM: Female, 80 years old. cp TECHNIQUE: Single AP portable view of the chest. COMPARISON: 12/13/2019 FINDINGS: Similar-appearing mild chronic basilar interstitial markings with no new focal airspace disease. There is no demonstrated pleural abnormality. Normal size heart. Normal mediastinum and kain. Normal visualized pulmonary arteries. Normal visualized aortic arch and descending thoracic aorta. Normal visualized thoracic spine. Normal visualized ribs, clavicles, and shoulders. There is no demonstrated abnormality of the visualized soft tissue structures of the upper abdomen. RAD/Chest 1 View (Portable) IMPRESSION: Similar appearance with no evidence of new acute cardiothoracic process. Electronically Signed: Antoni Ruby DO at 10:45 EDT , Service support ,
--- NOTE | 2021-05-26 09:41 | EDS_ITS ---
HPI History of Present Illness Chief Complaint: Syncope Informant: patient Onset/Context/Timing Onset: Today Narrative Narrative: Patient presents with 2 reported syncopal episodes at home. She states now she feels very dizzy and has some chest pressure. She states she got this morning and felt okay, went to the restroom. She states she remembers wiping herself and then waking up on the floor. She was able to get to the kitchen table with help from family. She then apparently had another brief syncopal episode while sitting there. Patient states she is not having chest pain this morning, but does now after the syncopal episode. She has a history of paroxysmal atrial fibrillation. No recent changes to her medications but did not take her medication this morning. [facility] Medical History ODILIA (acute kidney injury) Arthritis Asthma Atherosclerotic heart disease of [place] coronary artery without angina pectoris Carotid stenosis, right CKD (chronic kidney disease) stage 3, GFR 30-59 ml/min Dyspnea, unspecified Encounter for monitoring anti-arrhythmic therapy Essential hypertension GERD (gastroesophageal reflux disease) History of cardioversion (~01/2019) HLD (hyperlipidemia) Hypothyroidism Long-term use of high-risk medication Nonrheumatic mitral (valve) stenosis Nonrheumatic mitral valve regurgitation PABLO on CPAP Osteoarthritis Paroxysmal atrial fibrillation Pulmonary hypertension Renal insufficiency Syncope Home Medications apixaban 2.5 mg PO BID tab 07/31/17 [Rx Last Taken 12/14/19] atorvastatin 20 mg tablet 20 mg PO QDAY #90 tab 10/08/18 [Rx Last Taken Unknown] levothyroxine 112 mcg tablet 112 mcg PO DAILY 12/07/18 [History Last Taken 12/14/19] furosemide 40 mg tablet 40 mg PO QDAY PRN tab 03/09/21 [History Last Taken Unknown] gabapentin 600 mg tablet 600 mg PO TID PRN tab 03/09/21 [History Last Taken Unknown] montelukast 10 mg tablet 10 mg PO DAILY tab 03/09/21 [History Last Taken Unknown] aspirin 81 mg tablet,delayed release 81 mg PO DAILY 03/21/21 [History Last Taken Unknown] losartan 100 mg tablet 50 mg PO BID #90 tab 04/02/21 [Rx Last Taken Unknown] Allergy/AdvReac Type Severity Reaction Status Date / Time sulfasalazine Allergy Intermediate Hives Verified 05/26/21 09:16 [From Azulfidine] Penicillins [PCN] Allergy Hives Verified 05/26/21 09:16 Sulfa (Sulfonamide Allergy Hives Verified 05/26/21 09:16 Antibiotics) Family History Mother Hypertension Myocardial infarction Sister Diabetes Paroxysmal atrial fibrillation Brother CVA (cerebral vascular accident) Alcohol abuse Cancer Liver CAD (coronary artery disease) Father Alzheimer disease Brother CAD (coronary artery disease) CABG Surgical History History of bilateral knee replacement History of cardiac catheterization History of carpal tunnel surgery History of cataract removal with insertion of prosthetic lens History of cholecystectomy History of hysterectomy History of rotator cuff surgery Tumor of ovary Social History Smoking Status: Never smoker second hand exposure: No alcohol intake: never substance use type: does not use caffeine: Yes Type: coffee Number of servings: 2 ROS ROS ED Constitutional Constitutional ED: Denies chills or fever(s) Eyes Eyes: Denies change in vision ENT ENT ED: Denies sore throat Cardiovascular Cardiovascular: Reports chest pain Respiratory/Chest Respiratory/Chest: Denies cough or dyspnea Gastrointestinal Gastrointestinal: Denies abdominal pain, diarrhea, nausea or vomiting Genitourinary Genitourinary ED: Denies dysuria Musculoskeletal Musculoskeletal: Denies back pain Integumentary Denies rash Neurologic Neurologic: Denies headache(s) or weakness Psychiatric Psychiatric: Denies anxiety or depression Allergic/Immunologic Allergic/Immunologic ED: Denies urticaria EXAM Physical Exam Const Vital Signs: 05/26/21 09:17 05/26/21 09:26 05/26/21 10:25 Temperature 98.2 F Temperature Source Temporal Pulse Rate 40 L 40 L Respiratory Rate 16 16 Respiratory Effort Normal Respiratory Pattern Normal Blood Pressure 135/34 H 103/60 Blood Pressure Mean 67 74 Pulse Ox 98 95 Oxygen Delivery Method Room Air Positive well nourished and well developed General Appearance ED: well developed HEENT Reports moist mucous membranes Eyes Eyes Narrative: Some conjunctival hemorrhage right eye Chest Wall inspection of chest normal and palpation of chest normal Resp normal respiratory effort and clear to auscultation bilaterally Cardio Rate: bradycardia GI normal to inspection, nondistended, normoactive bowel sounds and non-tender Palpation: soft Extremity normal to inspection Neuro oriented x3 Sensorium / Orientation: alert Psych mental status grossly normal Skin no rashes or lesions noted MDM MDM MDM Narrative Medical decision making narrative: EKG, labs, chest x-ray obtained. Lab Data Attestation: I reviewed the patient's lab results. Labs: Laboratory Results - last 24 hr 05/26/21 05/26/21 09:40 09:40 WBC 7.8 RBC 4.29 Hgb 12.4 Hct 40.0 MCV 93.2 MCH 28.9 MCHC 31.0 L RDW Std Deviation 44.8 H RDW Coeff of Lauro 13.2 Plt Count 304 MPV 10.5 Immature Gran % (Auto) 0.400 Neut % (Auto) 62.6 Lymph % (Auto) 23.9 [place] % (Auto) 9.8 Eos % (Auto) 2.8 Baso % (Auto) 0.5 Absolute Neuts (auto) 4.9 Absolute Lymphs (auto) 1.87 Nucleated RBC % 0 Sodium 142 Potassium 4.1 Chloride 106 Carbon Dioxide 28.0 Anion Gap 8 BUN 15 Creatinine 1.06 H Estim Creat Clear Calc 33.85 Est GFR (MDRD) Af Amer 64 Est GFR (MDRD) Non-Af 53 L BUN/Creatinine Ratio 14.2 Glucose 94 Calcium 8.9 Troponin I High Sens 11 Radiography Chest X-Ray - ED: 1 View, Read by ED Physician and Chronic Changes Diagnostic Testing: Radiology Impression Chest X-Ray 05/26/21 09:38 IMPRESSION: Similar appearance with no evidence of new acute cardiothoracic process. Electronically Signed: Antoni Ruby DO at 10:45 EDT , Service support , EKG Initial EKG: Attestation: I personally reviewed and interpreted this EKG as follows: Interpretation: Sinus Bradycardia (Sinus bradycardia at 43 bpm with first- degree AV block.) Treatment and Re-Evaluation Comments:: As I was standing at patient's bedside watching monitor she clearly was going in and out of third-degree heart block with heart rates dropping into the mid 30s. In light of this a went ahead and called for transfer to get her to a tertiary care center with ability to place pacemaker. Lab work is pending at this time. I spoke with the CCU fellow at [facility] and patient has been accepted in transfer. Critical Care Time Critical Care Time: Yes Critical care time (excluding procedures): 30-74 minutes (30 minutes), Disc ussing w/Patient &/or Family/Crop Research Scientist, Discussing w/Consultants, Arranging Admission or Transfer and Performing Direct Patient Care at Bedside Discharge Plan Triage Chief Complaint: Syncope ED Provider: Gema Lay Dx/Rx/DC Orders Clinical Impression: Third degree heart block, Syncope Prescriptions: No Action furosemide 40 mg tablet 40 mg PO QDAY PRN (Reason: swelling) RF: 0 levothyroxine 112 mcg tablet 112 mcg PO DAILY RF: 0 gabapentin 600 mg tablet 600 mg PO TID PRN (Reason: Pain) RF: 0 montelukast 10 mg tablet 10 mg PO DAILY RF: 0 aspirin [Adult Aspirin Regimen] 81 mg tablet,delayed release (DR/EC) 81 mg PO DAILY RF: 0 apixaban 2.5 MG tablet 2.5 mg PO BID RF: 0 atorvastatin 20 mg tablet 20 mg PO QDAY Qty: 90 RF: 3 losartan 100 mg tablet 50 mg PO BID Qty: 90 RF: 3 Primary Care Provider: Carrillo Franklin Referrals: Carrillo Franklin MD [Primary Care Provider] - Disposition Disposition: Acute Care Hospital Discharge Location: [facility]
--- NOTE | 2021-05-26 09:58 | EKGRS_ITS ---
Test Reason : SYNCOPE Blood Pressure : / mmHG Vent. Rate : 043 BPM Atrial Rate : 043 BPM P-R Int : 314 ms QRS Dur : 072 ms QT Int : 484 ms P-R-T Axes : 077 010 044 degrees QTc Int : 408 ms Marked sinus bradycardia with 1st degree A-V block Poor R wave progression Abnormal ECG Confirmed by SAILAJA FREDERICK, JESSICA ([id number]), news assignment editor ARUNA DAVID ([id number]) on 05/30/2021 9:07:49 AM Referred By: SCOTT Confirmed By:JESSICA MENARD MD
[2021-05-26 10:05] LABS: Absolute Lymphocyte Count 1.87 X10^3/uL (0.83-4.51); Absolute Neutrophil Count 4.9 X10^3/uL (2.0-7.7); Basophil# 0.04 X10^3/uL; Basophil% 0.5 % (0-1); Eosinophil# 0.22 X10^3/uL; Eosinophils% 2.8 % (0-5); Hemoglobin 12.4 g/dL (12.0-15.0); Lymphocyte # 1.87 X10^3/ul (0.83-4.51); Lymphocyte % 23.9 % (19-41); Mean Corpuscular Hgb 28.9 pg (27.0-32.0); Mean Corpuscular Volume 93.2 fL (81-99); Mean Platelet Vol. 10.5 fl (6.2-12.0); Monocyte# 0.77 X10^3/uL; Monocyte% 9.8 % (0-10); NRBC Flagged by Analyzer 0 % (0-5); Neutrophil # 4.89 X10^3/uL (2.7-7.7); Neutrophil % 62.6 % (47-70); Platelet Count 304 K/mm3 (150-450); RBC Distribution Width CV 13.2 % (11.6-14.6); RBC Distribution Width SD 44.8 fl (35.1-43.9); Red Blood Count 4.29 M/mm3 (4.2-5.4); White Blood Count 7.8 K/mm3 (4.4-11.0)
[2021-05-26 10:25] VITALS: BP 103/60; PULSE 40; RESP 16; O2SAT 95
[2021-05-26] MEDS: 0.9% Normal Saline 1,000 ML 150 ML IV (10:25)
[2021-05-26 10:26] LABS: Anion Gap 8 (5-15); BUN 15 mg/dL (7-18); BUN/Creat Ratio 14.2 RATIO (10-20); Calcium,Total 8.9 mg/dL (8.5-10.1); Chloride 106 mmol/L (98-107); Creatinine, Serum 1.06 mg/dL (0.55-1.02); EST Glomerular Filtration Rate 53 mL/min (>60); Est Glom Filt Rate - Afr Amer 64 mL/min (>60); Estimated Creatinine Clearance 33.85 ml/min; Glucose 94 mg/dL (74-106); Potassium 4.1 mmol/L (3.5-5.1); Sodium Level 142 mmol/L (136-145); Troponin-I HS 11 pg/mL (3.0-54.0)
== END 2021-05-26 10:55 | disposition short-term general hospital (02) ==
PROVIDERS: Emergency Provider Emergency Medicine; PCP Family Medicine
DX: I44.2 Atrioventricular block, complete (principal); R55 Syncope and collapse; I25.10 Atherosclerotic heart disease of native coronary artery without angina pectoris; I12.9 Hypertensive chronic kidney disease with stage 1 through stage 4 chronic kidney disease, or unspecified chronic kidney disease; N18.30 Chronic kidney disease, stage 3 unspecified; E03.9 Hypothyroidism, unspecified; E78.5 Hyperlipidemia, unspecified; Z79.899 Other long term (current) drug therapy; Z79.82 Long term (current) use of aspirin
CPT/HCPCS: 71045; 80048; 84484; 85025; 87426; 93005; 99285

== ENCOUNTER → 2021-08-14 06:23 | Outpatient (CLI) | payer MEDICARE, SELFPAY ==
--- NOTE | 2021-08-14 07:56 | STRESSREP ---
Stress Test Report Date: 08-14-2021 Procedure: Pharmacologic stress nuclear imaging study Indications: Chest pain; shortness of breath/dyspnea; cardiac dysrhythmia; status post permanent pacemaker; preoperative cardiovascular assessment Consent: Per the patient Procedure: The patient underwent pharmacologic (Regadenoson 0.4mg ) evaluation with a peak heart rate of 100 beats per minute (72%predicted maximal heart rate) and a peak blood pressure of 148/82 mmHg. The baseline ECG demonstrated electronic ventricular pacemaker. The peak pharmacologic ECG demonstrated electronic ventricular pacemaker. There was a rare PVC postinfusion. There was no complaint of chest discomfort during pharmacologic infusion or recovery. The examination was discontinued secondary to completion of protocol. Impression: 1. Pharmacologic (Regadenoson) evaluation 2. Peak pharmacologic ECG with continued electronic ventricular pacemaker. 3. There was a rare PVC postinfusion. 4. Nuclear images pending Myocardial perfusion imaging study: Technique: The patient was injected with 14.5 millicuries of technetium 99m Cardiolite and subsequently rest SPECT Cardiolite nuclear imaging was obtained in the horizontal long, vertical long, and short axis views. The patient underwent pharmacologic (Regadenoson) evaluation with a peak heart rate of 100 beats per minute (72% percent predicted maximal heart rate) and a peak blood pressure of 148/82 mmHg. The patient was injected with 44.4 millicuries of technetium 99m Cardiolite and subsequently stress SPECT Cardiolite nuclear imaging was obtained in the horizontal long, vertical long, and short axis views. A gated Cardiolite study at peak stress was obtained. Interpretation: Rest and stress SPECT Cardiolite nuclear imaging status post realignment, normalization, and attenuation correction demonstrate the appearance of an area of diminished tracer uptake/myocardial perfusion in the mid anterior segments both at rest and stress which appears to be somewhat more prominent following stress. There are similar type findings on the resting and stress polar map images. There is end systolic thickening and brightening. The gated Cardiolite study demonstrates myocardial thickening and inward wall motion. The reported LVEF is 77%. Impression: 1. Rest and stress SPECT her nuclear imaging demonstrate myocardial perfusion changes potentially compatible with the effects of shifting soft tissue attenuation/artifact although an area of stress-induced myocardial ischemia in the mid anterior segments cannot necessarily be excluded. 2. The gated Cardiolite study reports an LVEF of 77%. This note was generated with [employer] software. It may contain incorrect words, spelling, and punctuation that were not noted in checking the note before signing.
== END ==
PROVIDERS: PCP Family Medicine; Referring Provider Physician Assistant Medical; Visit Provider Physician Assistant Medical
DX: Z01.810 Encounter for preprocedural cardiovascular examination (principal); R07.9 Chest pain, unspecified; R94.31 Abnormal electrocardiogram [ECG] [EKG]; I48.0 Paroxysmal atrial fibrillation; I65.21 Occlusion and stenosis of right carotid artery; Z95.0 Presence of cardiac pacemaker
CPT/HCPCS: 78452; 93017; A9500; A4216; J2785

== ENCOUNTER 2021-08-21 18:32 | Observation (INO) | payer MEDICARE, SELFPAY ==
[2021-08-15 12:05] LABS: Absolute Lymphocyte Count 2.04 X10^3/uL (0.83-4.51); Absolute Neutrophil Count 3.6 X10^3/uL (2.0-7.7); Basophil# 0.05 X10^3/uL; Basophil% 0.8 % (0-1); Eosinophil# 0.33 X10^3/uL; Hematocrit 37.3 % (37-47); Hemoglobin 11.7 g/dL (12.0-15.0); Lymphocyte # 2.04 X10^3/ul (0.83-4.51); Lymphocyte % 30.7 % (19-41); Mean Corp Hgb Conc 31.4 g/dL (32-36); Mean Corpuscular Hgb 28.3 pg (27.0-32.0); Mean Corpuscular Volume 90.3 fL (81-99); Mean Platelet Vol. 10.3 fl (6.2-12.0); Monocyte# 0.66 X10^3/uL; Monocyte% 9.9 % (0-10); NRBC Flagged by Analyzer 0 % (0-5); Neutrophil # 3.55 X10^3/uL (2.7-7.7); Neutrophil % 53.3 % (47-70); Platelet Count 399 K/mm3 (150-450); RBC Distribution Width CV 13.4 % (11.6-14.6); RBC Distribution Width SD 44.4 fl (35.1-43.9); Red Blood Count 4.13 M/mm3 (4.2-5.4); White Blood Count 6.7 K/mm3 (4.4-11.0)
[2021-08-15 13:03] LABS: Anion Gap 6 (5-15); BUN 9 mg/dL (7-18); BUN/Creat Ratio 9.3 RATIO (10-20); Calcium,Total 8.7 mg/dL (8.5-10.1); Chloride 110 mmol/L (98-107); Creatinine, Serum 0.97 mg/dL (0.55-1.02); EST Glomerular Filtration Rate 58 mL/min (>60); Est Glom Filt Rate - Afr Amer 71 mL/min (>60); Glucose 73 mg/dL (74-106); Potassium 3.8 mmol/L (3.5-5.1); Sodium Level 142 mmol/L (136-145)
[2021-08-15 15:55] LABS: Thyroid Stim Hormone (TSH) 2.23 uIU/mL (0.358-3.74)
[2021-08-20 08:38] VITALS: BMI 37.2
--- NOTE | 2021-08-20 10:40 | HP.PCM_ITS ---
History and Physical Date of Admission: 08/21/21 History of Present Illness Details: TRANG LARSON, is a 80 white female who presents to the [facility] today for a heart catheterization. Patient presented to [facility] 05/26 with 2 further syncopal episodes. She was transferred to [facility] for EP evaluation after groundwater monitoring technician demonstrated intermittent heart block with heart rates in the 30s. She also developed third-degree AV block with narrow complex junctional escape. She underwent a dual chamber pacemaker placement on 05/28/2021. Prior to her PPM she was being worked up for syncope and was noted to have critical stenosis on her right carotid. She is in the process of being scheduled to have surgery on this with Dr. Watters. However this was placed on hold with her pacemaker placement. She did call our office with concerns over lightheadedness and dizziness. Pacemaker interrogation did not demonstrate anything significant. She contact our office in the beginning of August 2021 with chest discomfort. She proceeded with stress test on 08/14/2021 that showed an area of stress-induced myocardial ischemia in the mid anterior segments cannot necessarily be excluded. Thus, she will proceed with heart catheterization to assess further. Pt notes that she is still SOB with exertion. She also notes at times when she is sitting she has chest burning. Similar to what she would have with a stress test. This occurs a few times a day. It can last a few seconds. She has not had any bleeding issues. She is still SOB with any activity. She notes that her dizziness comes and goes. She did use meclizine. This did helped somewhat. She does have an issues with vertigo but has not had this in a while. She is hesitant to do another JB. She is expected undergo carotid surgery with Dr. Watters once cleared from a cardiovascular standpoint. Intake Vital Signs: See EMR Intake Visit Reasons: [facility] Larry Car Operator Required: No Accompanied by: None Is patient in pain?: No Allergies sulfasalazine [From Azulfidine] Allergy (Intermediate, Verified 06/29/21 10:42) Hives Penicillins [PCN] Allergy (Verified 06/29/21 10:42) Hives Sulfa (Sulfonamide Antibiotics) Allergy (Verified 06/29/21 10:42) Hives Medications See EMR [facility] Medical History (Updated 06/29/21 @ 15:10 by Lu KWAN, PA) ODILIA (acute kidney injury) Arthritis Asthma Atherosclerotic heart disease of [place] coronary artery without angina pectoris Carotid stenosis, right CKD (chronic kidney disease) stage 3, GFR 30-59 ml/min Dyspnea, unspecified Encounter for monitoring anti-arrhythmic therapy Essential hypertension GERD (gastroesophageal reflux disease) History of cardioversion (~01/2019) HLD (hyperlipidemia) Hypothyroidism Long-term use of high-risk medication Nonrheumatic mitral (valve) stenosis Nonrheumatic mitral valve regurgitation PABLO on CPAP Osteoarthritis Paroxysmal atrial fibrillation Presence of permanent cardiac pacemaker Pulmonary hypertension Renal insufficiency Syncope Surgical History History of bilateral knee replacement History of cardiac catheterization History of carpal tunnel surgery History of cataract removal with insertion of prosthetic lens History of cholecystectomy History of hysterectomy History of rotator cuff surgery Tumor of ovary Family History Mother Hypertension Myocardial infarction Sister Diabetes Paroxysmal atrial fibrillation Brother CVA (cerebral vascular accident) Alcohol abuse Cancer Liver CAD (coronary artery disease) Father Alzheimer disease Brother CAD (coronary artery disease) CABG Social History Smoking Status: Never smoker second hand exposure: No alcohol intake: never substance use type: does not use caffeine: Yes Type: coffee Number of servings: 2 ROS Const Const: Positive for fatigue; Negative for weakness, headache(s), frequent falls, difficulty sleeping or excessive sweating Eyes Eyes: Negative for loss of peripheral vision, transient loss of vision, blurry vision, double vision or tunnel vision ENT ENT: Positive for dizziness and balance problems; Negative for headache(s) or Nosebleed/epistaxis Cardio Chest Pain: Yes (see HPI) Palpitations: No Edema: Bilateral (None currently, improves with lasix) Muscle aches with walking: None Resp Respiratory: Positive for SOB with activity and SOB at rest (Occasionally); Negative for SOB orthopnea\SOB lying down, Cough or paroxysmal nocturnal dyspnea GI GI: Negative nausea, vomiting, heartburn or black,tarry stools : Negative for hematuria Musc Musc: Positive for muscle weakness (Weakness in legs recently), joint pain and balance problems; Negative for muscle aches/ myalgia Skin Skin: Negative non-healing lesions, rash or unusual bruising Neuro Neuro: Positive for dizziness; Negative for lightheadedness, near syncope, syncope, frequent falls, headache(s), weakness, blurry vision, double vision or lack of coordination [place] Hematologic/Lymphatic: Negative for easy bleeding or easy bruising Endo Endo: Positive for fatigue; Negative for excessive sweating or increased thirst/drinking Psych Psych: Negative for anxiety or depression Allergy Allergy/Immunology: Negative for hives and Negative for rash Cardiology Exam Const Appearance: cooperative, healthy appearing, comfortable, no acute distress and well developed Orientation: alert, awake and oriented x3 Head Head: normal to inspection Ears: hearing grossly normal bilaterally Nose: external nose normal Face and Sinus: face symmetric Mouth: oral mucosae normal, lip normal and moist mucous membranes Eyes General: appearance normal, both eyes and all related structures Eyelids: eyelids normal Conjunctivae: conjunctivae normal Pupils: PERRL EOM: EOM intact bilaterally Neck Neck: normal visual inspection and trachea midline; Negative no JVD Carotids: Negative bruit Chest Chest inspection: normal inspection of the chest Auscultation: Bilateral: Diminished Lung Sounds Cardio Palpation: normal PMI Rate: regular rate Rhythm: regular rhythm Heart sounds: S1 normal, S2 normal and murmur; Negative rub or gallop Murmur: Grade 2/6, soft and mid systolic GI GI: soft, no hepatosplenomegaly and bowel sounds present Neuro General: patient alert, patient awake, patient oriented x3 and CN's II-XI intact bilaterally Extremities Pulses: Normal: Right Posterior Tibial Pulse, Left Posterior Tibial Pulse, Right Radial Pulse and Left Radial Pulse Lower Extremity Edema: None: Bilateral Psych Psychological: normal affect Assessment and Plan Assessment and Plan (1) Atherosclerotic heart disease of [place] coronary artery without angina pectoris: Qualifiers: [place] vs. transplanted heart: [place] heart Qualified Code(s): I25.10 - Atherosclerotic heart disease of [place] coronary artery without angina pectoris Her stress test on 08/14/2021 could not exclude ischemia. Given her symptoms and stress test results, she will proceed with heart catheterization. Based on results, further recommendation be made. (2) Presence of permanent cardiac pacemaker: Pacemaker is functioning appropriately. We will continue to monitor at routine scheduled pacemaker interrogations. (3) Carotid stenosis, right: Status: Chronix Pt is following with Dr. Watters, she will have this surgery in the near future. (4) Nonrheumatic mitral (valve) stenosis: Status: Chronic Pt is concerned that her valve is worsening- however her SOB is not changed just bothersome. Discussed obtain a JB to further evaluate. She is hesitant to proceed as she had previously discussed with CT surgery about Mitral valve surgery, in the past it was flet that she would be a difficult case with the amount of calcification on her Mitral valve. For now no changes and close monitoring. (5) Paroxysmal atrial fibrillation: Status: Chronic This can not be monitored with her PPM. She will continue with her rate limiting medication in addition to her anticoagulant. (6) Essential hypertension: Status: Chronic Blood pressure is well controlled on current medications, we do not recommend any changes at this time. (7) Dizziness: Status: Acute Plan - Lu KWAN, PA: This could be multifactorial. It could be related to her history of vertigo as meclizine has helped. It could be related to his carotid artery disease. She will follow with vascular surgery for this. It could also be related to her mitral valve. Prescription given for meclizine. We will see if this improves after her carotid artery surgery.
--- NOTE | 2021-08-20 16:39 | HP.PCM_ITS ---
History and Physical Date of Admission: 08/21/21 [facility] Medical Records Department [address] [place] [address] History & Physical Exam08/20/21 1040#: [id number]:TRANG LARSON #:[id number]: [id number]: Osito Benson NP RESOURCE RECOVERY ENGINEER-CPCP:Dr. Carrillo Franklin MD Status:PRE SDCLocation: CLSP History and Physical Date of Admission: 08/21/21 History of Present Illness Details: TRANG LARSON, is a 80 white female who presents to the [facility] today for a heart catheterization. Patient presented to [facility] 05/26 with 2 further syncopal episodes. She was transferred to [facility] for EP evaluation after monitoring manager demonstrated intermittent heart block with heart rates in the 30s. She also developed third-degree AV block with narrow complex junctional escape. She underwent a dual chamber pacemaker placement on 05/28/2021. Prior to her PPM she was being worked up for syncope and was noted to have critical stenosis on her right carotid. She is in the process of being scheduled to have surgery on this with Dr. Watters. However this was placed on hold with her pacemaker placement. She did call our office with concerns over lightheadedness and dizziness. Pacemaker interrogation did not demonstrate anything significant. She contact our office in the beginning of August 2021 with chest discomfort. She proceeded with stress test on 08/14/2021 that showed an area of stress-induced myocardial ischemia in the mid anterior segments cannot necessarily be excluded. Thus, she will proceed with heart catheterization to assess further. Pt notes that she is still SOB with exertion. She also notes at times when she is sitting she has chest burning. Similar to what she would have with a stress test. This occurs a few times a day. It can last a few seconds. She has not had any bleeding issues. She is still SOB with any activity. She notes that her dizziness comes and goes. She did use meclizine. This did helped somewhat. She does have an issues with vertigo but has not had this in a while. She is hesitant to do another JB. She is expected undergo carotid surgery with Dr. Watters once cleared from a cardiovascular standpoint. Intake Vital Signs: See EMR Intake Visit Reasons: 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 Carotid stenosis, right CKD (chronic kidney disease) stage 3, GFR 30-59 ml/min Dyspnea, unspecified Encounter for monitoring anti-arrhythmic therapy Essential hypertension GERD (gastroesophageal reflux disease) History of cardioversion (~01/2019) HLD (hyperlipidemia) Hypothyroidism Long-term use of high-risk medication Nonrheumatic mitral (valve) stenosis Nonrheumatic mitral valve regurgitation PABLO on CPAP Osteoarthritis Paroxysmal atrial fibrillation Presence of permanent cardiac pacemaker Pulmonary hypertension Renal insufficiency Syncope Surgical History History of bilateral knee replacement History of cardiac catheterization History of carpal tunnel surgery History of cataract removal with insertion of prosthetic lens History of cholecystectomy History of hysterectomy History of rotator cuff surgery Tumor of ovary Family History Mother Hypertension Myocardial infarction Sister Diabetes Paroxysmal atrial fibrillation Brother CVA (cerebral vascular accident) Alcohol abuse Cancer Liver CAD (coronary artery disease) Father Alzheimer disease Brother CAD (coronary artery disease) CABG Social History Smoking Status: Never smoker second hand exposure: No alcohol intake: never substance use type: does not use caffeine: Yes Type: coffee Number of servings: 2 ROS Const Const: Positive for fatigue; Negative for weakness, headache(s), frequent falls, difficulty sleeping or excessive sweating Eyes Eyes: Negative for loss of peripheral vision, transient loss of vision, blurry vision, double vision or tunnel vision ENT ENT: Positive for dizziness and balance problems; Negative for headache(s) or Nosebleed/epistaxis Cardio Chest Pain: Yes (see HPI) Palpitations: No Edema: Bilateral (None currently, improves with lasix) Muscle aches with walking: None Resp Respiratory: Positive for SOB with activity and SOB at rest (Occasionally); Negative for SOB orthopnea\SOB lying down, Cough or paroxysmal nocturnal dyspnea GI GI: Negative nausea, vomiting, heartburn or black,tarry stools : Negative for hematuria Musc Musc: Positive for muscle weakness (Weakness in legs recently), joint pain and balance problems; Negative for muscle aches/ myalgia Skin Skin: Negative non-healing lesions, rash or unusual bruising Neuro Neuro: Positive for dizziness; Negative for lightheadedness, near syncope, syncope, frequent falls, headache(s), weakness, blurry vision, double vision or lack of coordination Obdulio Hematologic/Lymphatic: Negative for easy bleeding or easy bruising Endo Endo: Positive for fatigue; Negative for excessive sweating or increased thirst/drinking Psych Psych: Negative for anxiety or depression Allergy Allergy/Immunology: Negative for hives and Negative for rash Cardiology Exam Const Appearance: cooperative, healthy appearing, comfortable, no acute distress and well developed Orientation: alert, awake and oriented x3 Head Head: normal to inspection Ears: hearing grossly normal bilaterally Nose: external nose normal Face and Sinus: face symmetric Mouth: oral mucosae normal, lip normal and moist mucous membranes Eyes General: appearance normal, both eyes and all related structures Eyelids: eyelids normal Conjunctivae: conjunctivae normal Pupils: PERRL EOM: EOM intact bilaterally Neck Neck: normal visual inspection and trachea midline; Negative no JVD Carotids: Negative bruit Chest Chest inspection: normal inspection of the chest Auscultation: Bilateral: Diminished Lung Sounds Cardio Palpation: normal PMI Rate: regular rate Rhythm: regular rhythm Heart sounds: S1 normal, S2 normal and murmur; Negative rub or gallop Murmur: Grade 2/6, soft and mid systolic GI GI: soft, no hepatosplenomegaly and bowel sounds present Neuro General: patient alert, patient awake, patient oriented x3 and CN's II-XI intact bilaterally Extremities Pulses: Normal: Right Posterior Tibial Pulse, Left Posterior Tibial Pulse, Right Radial Pulse and Left Radial Pulse Lower Extremity Edema: None: Bilateral Psych Psychological: normal affect Assessment and Plan Assessment and Plan (1) Atherosclerotic heart disease of ho-[place] coronary artery without angina pectoris: Qualifiers: [place] vs. 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 Given her symptoms and stress test results, she will proceed with heart catheterization. Based on results, further recommendation be made. (2) Presence of permanent cardiac pacemaker: Pacemaker is functioning appropriately. We will continue to monitor at routine scheduled pacemaker interrogations. (3) Carotid stenosis, right: Status: Chronix Pt is following with Dr. Watters, she will have this surgery in the near future. (4) Nonrheumatic mitral (valve) stenosis: Status: Chronic Pt is concerned that her valve is worsening- however her SOB is not changed just bothersome. Discussed obtain a JB to further evaluate. She is hesitant to proceed as she had previously discussed with CT surgery about Mitral valve surgery, in the past it was flet that she would be a difficult case with the amount of calcification on her Mitral valve. For now no changes and close monitoring. (5) Paroxysmal atrial fibrillation: Status: Chronic This can not be monitored with her PPM. She will continue with her rate limiting medication in addition to her anticoagulant. (6) Essential hypertension: Status: Chronic Blood pressure is well controlled on current medications, we do not recommend any changes at this time. (7) Dizziness: Status: Acute Plan - Lu KWAN, PA: This could be multifactorial. It could be related to her history of vertigo as meclizine has helped. It could be related to his carotid artery disease. She will follow with vascular surgery for this. It could also be related to her mitral valve. Prescription given for meclizine. We will see if this improves after her carotid artery surgery. 08/20/21 1057 <Electronically signed by Osito FINNEGAN> Cosigner Signature (if applicable): 08/20/21 1135 <Electronically signed by Jerry Osorio MD> CC: SIVAN Benson; Dr. Carrillo Franklin MD; Dr. Jerry Osorio MD~Signed Addendum: Transthoracic echocardiogram: 10-01-2017 Interpretation Summary Left ventricular systolic function is normal. The estimated ejection fraction is 60 %. The left atrium is moderately enlarged. There is moderate to severe mitral annular calcification. Extension of the mitral annular calcification onto the mitral valve leaflets. Mild-Moderate mitral valve stenosis. Mild-Moderate (1-2+) mitral valve insufficiency. Mild tricuspid valve insufficiency. Aortic sclerosis, no stenosis. Calcified aortic root. Right ventricular systolic pressure estimated to be 43 mmHg c/w pulmonary hypertension. Transmitral diastolic flow velocities suggest diastolic dysfunction (pseudonormal pattern). Stress Test Report Date: 08-14-2021 Procedure: Pharmacologic stress nuclear imaging study Indications: Chest pain; shortness of breath/dyspnea; cardiac dysrhythmia; status post permanent pacemaker; preoperative cardiovascular assessment Consent: Per the patient Procedure: The patient underwent pharmacologic (Regadenoson 0.4mg ) evaluation with a peak heart rate of 100 beats per minute (72%predicted maximal heart rate) and a peak blood pressure of 148/82 mmHg. The baseline ECG demonstrated electronic ventricular pacemaker. The peak pharmacologic ECG demonstrated electronic ventricular pacemaker. There was a rare PVC postinfusion. There was no complaint of chest discomfort during pharmacologic infusion or recovery. The examination was discontinued secondary to completion of protocol. Impression: 1. Pharmacologic (Regadenoson) evaluation 2. Peak pharmacologic ECG with continued electronic ventricular pacemaker. 3. There was a rare PVC postinfusion. 4. Nuclear images pending Myocardial perfusion imaging study: Technique: The patient was injected with 14.5 millicuries of technetium 99m Cardiolite and subsequently rest SPECT Cardiolite nuclear imaging was obtained in the horizontal long, vertical long, and short axis views. The patient underwent pharmacologic (Regadenoson) evaluation with a peak heart rate of 100 beats per minute (72% percent predicted maximal heart rate) and a peak blood pressure of 148/82 mmHg. The patient was injected with 44.4 millicuries of technetium 99m Cardiolite and subsequently stress SPECT Cardiolite nuclear imaging was obtained in the horizontal long, vertical long, and short axis views. A gated Cardiolite study at peak stress was obtained. Interpretation: Rest and stress SPECT Cardiolite nuclear imaging status post realignment, normalization, and attenuation correction demonstrate the appearance of an area of diminished tracer uptake/myocardial perfusion in the mid anterior segments both at rest and stress which appears to be somewhat more prominent following stress. There are similar type findings on the resting and stress polar map images. There is end systolic thickening and brightening. The gated Cardiolite study demonstrates myocardial thickening and inward wall motion. The reported LVEF is 77%. Impression: 1. Rest and stress SPECT her nuclear imaging demonstrate myocardial perfusion changes potentially compatible with the effects of shifting soft tissue attenuation/artifact although an area of stress-induced myocardial ischemia in the mid anterior segments cannot necessarily be excluded. 2. The gated Cardiolite study reports an LVEF of 77%. Cardiac catheterization: 05-26-2018 CONCLUSIONS Elevated Left Ventricular End Diastolic Pressure Normal LV size, wall motion,and systolic function LVEF: by LV gram 70 % [place] Multivessel CAD (LAD Proximal: minimal luminal irregularities; DX1 Ostial: 25-50% stenosis; LCX: minimal luminal irregularities) Mitral Valve Annular Calcification Severe annular calcification Mitral Valve Insufficiency Mild RECOMMENDATIONS Risk factor modification Medical therapy DESCRIPTION OF PROCEDURE The patient arrived to the procedure lab. The risks and benefits of the procedure as well as a full description of our services here and current unavailability of surgical backup were fully explained to the patient and/or their significant other prior to the catheterization. The Timeout was completed, verifying the correct patient and procedure. The patient's procedural site was prepped and draped in the usual fashion. Local anesthetic was given subcutaneously to right groin region with Lidocaine 2%. Using a modified Seldinger technique, arterial access was obtained via the right femoral artery, a 4Fr sheath was inserted Left Coronary Artery selective angiography was performed in multiple views using a 4 Fr. JL5 catheter. Right Coronary Artery selective angiography was then performed in multiple views using a 4 Fr. 3DRC catheter. Left Ventriculography was performed in JOAQUIN projection using a 4 Fr. Pigtail catheter. LV to AO pullback pressures were then recorded.The arterial sheath was pulled and manual compression applied until hemostasis is achieved. CORONARY ANGIOGRAPHY DOMINANCE: Right Dominant LEFT HEART ASSESSMENT Left Ventricular Ejection Fraction: by LV Gram 70 % Normal LV wall motion Elevated Left Ventricular End Diastolic Pressure LVEDP: 28 mmHg LEFT MAIN: Angiographically normal LEFT ANTERIOR DECENDING ARTERY: PROX LAD: Mild luminal irregularities DIAGONAL 1: Ostial - 25-50 % Stenosis CIRCUMFLEX ARTERY: Mild luminal irregularities RIGHT CORONARY ARTERY: Angiographically normal VALVE FINDINGS: Normal Aortic Valve function Mitral Annular Calcification: Severe Mitral Valve Insufficiency - Grade 1 AORTIC ROOT: Angiographically normal Assessment & Plan Addt'l Comments I have re-examined the patient. There are no clinical changes since date of exam
[2021-08-21] VITALS (10 sets, daily range): BP systolic 110–166; BP diastolic 59–93; PULSE 76–98; RESP 16–18; TEMP 36.2–36.8; O2SAT 94–97; BMI 39.2
--- NOTE | 2021-08-21 12:12 | CL.I_ITS ---
Patient Name: TRANG LARSON Study Date: 08/21/2021 Performing: Charu Eid MD Ht: 62.99 inches 160 cm : 1940 Wt: 209.44 lbs 95 kg Age: 80 Gender: female BSA: 1.97 PROCEDURE(S) PERFORMED [id number], CORONARY OR GRAFT, INITIAL VESSEL CLINICAL PROFILE AND CO-MORBIDITIES Heart Failure: None CONCLUSIONS FFR in the D1 was 0.91 that is consistent with stenoses that can be treated medically at this time. RECOMMENDATIONS DESCRIPTION OF PROCEDURE The patient arrived to the procedure lab. The risks and benefits of the procedure as well as a full d escription of our services here and current unavailability of surgical backup were fully explained to the patient and/or their significant other prior to the catheterization. The Timeout was completed, verifying the correct patient and procedure. The patient's procedural site was prepped and draped in the usual fashion. Local anesthetic was given subcutaneously to right radial region with Lidocaine 2% per Dr. Eid. Local anesthetic was given subcutaneously to right groin region with Lidocaine 2% Using a modified Seldinger technique,arterial access was obtained via the right radial artery, a 6Fr sheath was inserted per Dr. Eid., arterial access was obtained via the right femoral artery, a 4Fr 45cm sheath was inserted Left Coronary Artery selective angiography was performed in multiple vi ews using a 4 Fr. JL5 catheter. Right Coronary Artery selective angiography was then performed in multiple views using a 4 Fr. 3DRC catheter. Left Ventriculography was performed in JOAQUIN p rojection using a 4 Fr. Pigtail catheter. LV to AO pullback pressures were then recorded. Arterial sheath was exchanged for a 6 Fr 55cm Sheath. XB 3.0 Guide catheter was inserted and enga ged into the LCA. BMW Guide wire was advanced to the 1st Diagonal. The FFR/iFR wire was inserted. Miracle nosine was then given per protocol. Pressures and FFR/iFR were then recorded. FFR Ratio Baseline: 0.9 7 FFR Ratio post Adenosine: .91 The FFR/iFR wire was then removed. INTERVENTION INFORMATION LESION SITE: 1st Diagonal (Ostial) FFR in the D1 was 0.91 which is consistent with a stenosis that can be treated medically at this time . Lesion Devices: Kinsey .014 BMW [place] Straight 190cm Cardinal 6 Fr XB3.0 100cm Guide Catheter [employer] ( [employer]ly [employer]) Coronary FFR Wire COMPLICATIONS No Complications PROCEDURE MEDICATIONS Fentanyl 50 mcg IV Versed 1 mg IV Oxygen: 2 L/min via nasal cannula Baby Aspirin (81mg) 1 Tabs PO 08/21/2021 11:23:58 Brilinta 180 mg PO 08/21/2021 11:24:07 Adenosine drip for FFR 774 ml IV @ 08/21/2021 11:45:25 Heparin given IA 08/21/2021 10:22:45 Heparin 7000 unit(s) IV 08/21/2021 11:30:59 Verapamil 2.5mg, Ntg 100mcgs, 3000 units of Heparin given IA 08/21/2021 10:22:45 SUMMARY OF HEMODYNAMIC DATA Time AIR REST ECG 09:15:07 AO 138/87 (113) SA 10:58:29 LV 166/11, 23 11:06:13 LV 169/8, 26 11:06:20 LV 163/12, 26 11:07:11 LVp 161/11, 32 11:07:16 AOp 158/74 (108) 11:07:21 AO 170/71 (104) 11:08:44 RM AIR REST 12:11:05 Signed By Charu Eid MD On 08/21/2021 12:11:20 Charu Eid MD
--- NOTE | 2021-08-21 12:37 | CL.D_ITS ---
Patient Name: TRANG LARSON Study Date: 08/21/2021 Performing: Jerry Osorio MD Ht: 62.99 inches 160 cm : 1940 Wt: 209.44 lbs 95 kg Age: 80 Gender: female BSA: 1.97 PROCEDURE(S) PERFORMED [id number]/COR/LV [id number], CORONARY OR GRAFT, INITIAL VESSEL CLINICAL PROFILE AND INDICATIONS Indications: Suspected CAD, Valvular Disease Heart Failure: None Stress/Imaging Date: 08/14/2021tress Test with SPECT MPI: Positive Intermediate Risk Angina Classification Anginal Classification w/in 2 Weeks: CCS IV CAD Presentations: Unstable angina. CONCLUSIONS Elevated Left Ventricular End Diastolic Pressure Normal LV size, wall motion,and systolic function LVEF: by LV gram 60 % [place] Multivessel CAD Mitral Valve Annular Calcification Severe annular calcification RECOMMENDATIONS Risk factor modification Medical therapy Staged for FFR / possible PCI Case discussed / reviewed with Dr. Eid of Interventional Cardiology Comment: The right radial artery was cannulated without difficulty. The guideware was able to be adva nced without difficulty. The 5F Lund catheter was not able to be advanced past the elbow secondary t o the pateints council anatomy being turtuous. Recommendation: consider future cardiac catheterization procedures being attempted via the left upper extremity or via the femoral artery approach. DESCRIPTION OF PROCEDURE The patient arrived to the procedure lab. The risks and benefits of the procedure as well as a full d escription of our services here and current unavailability of surgical backup were fully explained to the patient and/or their significant other prior to the catheterization. The Timeout was completed, verifying the correct patient and procedure. The patient's procedural site was prepped and draped in the usual fashion. Local anesthetic was given subcutaneously to right radial region with Lidocaine 2% per Dr. Eid. Local anesthetic was given subcutaneously to right groin region with Lidocaine 2% . Using a modified Seldinger technique, arterial access was obtained via the right radial artery, a 6 Fr sheath was inserted per Dr. Eid., arterial access was obtained via the right femoral artery, a 4Fr 45cm sheath was inserted Left Coronary Artery selective angiography was performed in multiple views using a 4 Fr. JL5 catheter. Right Coronary Artery selective angiography was then performed in multiple views using a 4 Fr. 3DRC catheter. Left Ventriculography was performed in JOAQUIN p rojection using a 4 Fr. Pigtail catheter. LV to AO pullback pressures were then recorded. CORONARY ANGIOGRAPHY DOMINANCE: Right Dominant LEFT HEART ASSESSMENT Left Ventricular Ejection Fraction: by LV Gram 60 % Normal LV wall motion Elevated Left Ventricular End Diastolic Pressure LVEDP: 26 mmHg LEFT MAIN: Angiographically normal LEFT ANTERIOR DESCENDING ARTERY: PROX LAD: Mild luminal irregularities DIAGONAL 1: Ostial - 75 % Stenosis CIRCUMFLEX ARTERY: PROX CIRC: Mild luminal irregularities RIGHT CORONARY ARTERY: Angiographically normal VALVE FINDINGS: Mitral Valve Annular Calcification Severe AORTIC ROOT: Angiographically normal COMPLICATIONS No Complications PROCEDURE MEDICATIONS Fentanyl 50 mcg IV Versed 1 mg IV Oxygen: 2 L/min via nasal cannula Baby Aspirin (81mg) 1 Tabs PO 08/21/2021 11:23:58 Brilinta 180 mg PO 08/21/2021 11:24:07 Adenosine drip for FFR 774 ml IV @ 08/21/2021 11:45:25 Heparin given IA 08/21/2021 10:22:45 Heparin 7000 unit(s) IV 08/21/2021 11:30:59 Verapamil 2.5mg, Ntg 100mcgs, 3000 units of Heparin given IA 08/21/2021 10:22:45 SUMMARY OF HEMODYNAMIC DATA Time AIR REST ECG 09:15:07 AO 138/87 (113) SA 10:58:29 LV 166/11, 23 11:06:13 LV 169/8, 26 11:06:20 LV 163/12, 26 11:07:11 LVp 161/11, 32 11:07:16 AOp 158/74 (108) 11:07:21 AO 170/71 (104) 11:08:44 RM AIR REST 12:11:35 Signed By Jerry Osorio MD On 08/21/2021 12:36:52 PM Jerry Osorio MD
[2021-08-21] MEDS: 0.9% Normal Saline 1,000 ML 50 ML IV (20:39)
[2021-08-21] MEDS: Isosorbide Mononitrate 30 MG Tablet PO (20:40)
[2021-08-21] MEDS: Metoprolol Tartrate 25 MG Tablet PO (22:00)
[2021-08-21] MEDS: Atorvastatin Calcium 20 MG Tablet PO (22:01)
[2021-08-22] VITALS (7 sets, daily range): BP systolic 94–115; BP diastolic 72–74; PULSE 65–81; RESP 18; TEMP 36.3–36.5; O2SAT 92–96
[2021-08-22] MEDS: Acetaminophen 325 MG Tablet 650 MG PO (03:18)
--- NOTE | 2021-08-22 03:58 | EKG12_ITS ---
Test Reason : CP Blood Pressure : / mmHG Vent. Rate : 070 BPM Atrial Rate : 070 BPM P-R Int : 164 ms QRS Dur : 172 ms QT Int : 500 ms P-R-T Axes : 069 -83 073 degrees QTc Int : 540 ms Sinus rhythm with AV synchronous pacing with occasional and consecutive Premature ventricular comple xes Left axis deviation Abnormal ECG Confirmed by SAILAJA FREDERICK, JERRY ([id number]), advertising editor ARUNA DAVID ([id number]) on 08/22/2021 1:19:27 PM Referred By: Jerry Menard Confirmed By:JERRY MENARD MD
[2021-08-22] MEDS: Isosorbide Mononitrate 30 MG Tablet PO (04:50)
[2021-08-22] MEDS: Levothyroxine 100 MCG Tablet PO (06:00)
[2021-08-22 06:09] LABS: Absolute Lymphocyte Count 1.78 X10^3/uL (0.83-4.51); Absolute Neutrophil Count 5.3 X10^3/uL (2.0-7.7); Basophil# 0.05 X10^3/uL; Basophil% 0.6 % (0-1); Eosinophil# 0.08 X10^3/uL; Hematocrit 31.6 % (37-47); Hemoglobin 10.1 g/dL (12.0-15.0); Lymphocyte # 1.78 X10^3/ul (0.83-4.51); Lymphocyte % 22.3 % (19-41); Mean Corpuscular Hgb 28.7 pg (27.0-32.0); Mean Corpuscular Volume 89.8 fL (81-99); Mean Platelet Vol. 10.4 fl (6.2-12.0); Monocyte# 0.72 X10^3/uL; NRBC Flagged by Analyzer 0 % (0-5); Neutrophil # 5.33 X10^3/uL (2.7-7.7); Neutrophil % 66.6 % (47-70); Platelet Count 308 K/mm3 (150-450); RBC Distribution Width CV 13.6 % (11.6-14.6); RBC Distribution Width SD 44.4 fl (35.1-43.9); Red Blood Count 3.52 M/mm3 (4.2-5.4)
[2021-08-22 06:57] LABS: Anion Gap 5 (5-15); BUN 13 mg/dL (7-18); BUN/Creat Ratio 12.5 RATIO (10-20); Chloride 109 mmol/L (98-107); Creatinine, Serum 1.04 mg/dL (0.55-1.02); EST Glomerular Filtration Rate 54 mL/min (>60); Est Glom Filt Rate - Afr Amer 65 mL/min (>60); Glucose 94 mg/dL (74-106); Potassium 3.7 mmol/L (3.5-5.1); Sodium Level 140 mmol/L (136-145)
--- NOTE | 2021-08-22 08:26 | PCM.DC ---
Discharge Instructions Diet Discharge Diet: Low fat / Low cholesterol Activity Discharge Activity: May Not Drive (x 48 hours ), May Shower (Today) and May Take a Tub Bath (in 7 days) Weight Bearing Status: - (avoid heavy exertional activity x 2 weeks then advance activity as tolerated unless otherwise directed) Dressing / Incision Call your doctor if your incision/area has: Continuous Slow Oozing, Sudden Increased Bleeding, Increased Pain/ Swelling, Increased Redness, Foul Smelling Discharge and Swelling at the incision site Call your doctor if you observe: Fever of 101 or Higher, Shortness of breath, Dizziness, Fainting spells, Swelling in the ankles, Chest pain, Increased palpitations (irregular heartbeat), Calf discomfort and Uncontrolled pain Remove Dressing in: 1 day Cleanse incision/area with: Soap & Water Additional Dressing/Incision Instructions:: Medication: Hold apixaban/eliquis pending upcoming carotid artery surgery on 08/27/21 then resume following surgery as directed Follow Up Care Please Follow Up With: Jerry Osorio MD When: 10/17/21: Pacemaker check: 1:00 PM 10/25/21: Office visit: 1:00 PM Test Results: Test results from this visit will be discussed in further detail at your follow-up appointment, if applicable. Discharge Plan Admission Admit Date/Time: 08/21/21 18:32 Primary Reason for Your Visit: Abnormal Stress Test Attending Provider: Jerry Osorio Primary Care Provider: Carrillo Franklin Consulting Providers: Lu Wright Discharge Orders/Prescriptions Prescriptions: Continued furosemide 40 mg tablet 40 mg PO QDAY PRN (Reason: swelling) RF: 0 levothyroxine 112 mcg tablet 100 mcg PO DAILY RF: 0 gabapentin 600 mg tablet 600 mg PO TID PRN (Reason: Pain) RF: 0 meclizine 25 mg tablet 25 mg PO DAILY PRN (Reason: dizziness) Qty: 30 RF: 3 montelukast 10 mg tablet 10 mg PO DAILY RF: 0 aspirin [Adult Aspirin Regimen] 81 mg tablet,delayed release (DR/EC) 81 mg PO DAILY RF: 0 cyanocobalamin (vitamin B-12) 1,000 mcg/mL Solution 1,000 mcg IM QMONTH RF: 0 atorvastatin 20 mg tablet 20 mg PO QDAY RF: 0 losartan 25 mg tablet 25 mg PO DAILY RF: 0 lansoprazole 15 mg Capsule,Delayed Release(Dr/Ec) 15 mg PO DAILY RF: 0 isosorbide mononitrate 30 mg tablet extended release 24 hr 30 mg PO DAILY Qty: 30 RF: 12 metoprolol tartrate 25 mg tablet 25 mg PO BID Qty: 60 RF: 12 Discontinued apixaban 2.5 MG tablet 2.5 mg PO BID RF: 0 Referrals / Follow Up: Carrillo Franklin MD [Primary Care Provider] - Jerry Osorio MD [STAFF PHYSICIAN] -
--- NOTE | 2021-08-22 08:40 | DS.PCM_ITS ---
Providers Date of Admission: 08/21/21 Primary Care Physician: Dr. Carrillo Franklin MD Reason For Visit: OUTPATIENT HEART CATH Diagnosis Discharge Diagnosis (1) Atherosclerotic heart disease of [place] coronary artery without angina pectoris: Status: Chronic Code(s): I25.10 - Atherosclerotic heart disease of [place] coronary artery without angina pectoris Qualifiers: [place] vs. transplanted heart: [place] heart Qualified Code(s): I25.10 - Atherosclerotic heart disease of [place] coronary artery without angina pectoris (2) Nonrheumatic mitral (valve) stenosis: Status: Chronic Code(s): I34.2 - Nonrheumatic mitral (valve) stenosis (3) Nonrheumatic mitral valve regurgitation: Status: Chronic Code(s): I34.0 - Nonrheumatic mitral (valve) insufficiency (4) Paroxysmal atrial fibrillation: Status: Chronic Code(s): I48.0 - Paroxysmal atrial fibrillation (5) Presence of permanent cardiac pacemaker: Status: Acute Code(s): Z95.0 - Presence of cardiac pacemaker (6) Pulmonary hypertension: Status: Chronic Code(s): I27.20 - Pulmonary hypertension, unspecified (7) HLD (hyperlipidemia): Status: Chronic Code(s): E78.5 - Hyperlipidemia, unspecified Qualifiers: Hyperlipidemia type: unspecified Qualified Code(s): E78.5 - Hyperlipidemia, unspecified (8) Essential hypertension: Status: Chronic Code(s): I10 - Essential (primary) hypertension (9) Carotid stenosis: Status: Acute Code(s): I65.29 - Occlusion and stenosis of unspecified carotid artery Qualifiers: Laterality: right Qualified Code(s): I65.21 - Occlusion and stenosis of right carotid artery Medications at Discharge Home Medications furosemide 40 mg tablet 40 mg PO QDAY PRN tab 03/09/21 gabapentin 600 mg tablet 600 mg PO TID PRN tab 03/09/21 montelukast 10 mg tablet 10 mg PO DAILY tab 03/09/21 aspirin 81 mg tablet,delayed release 81 mg PO DAILY 03/21/21 levothyroxine 112 mcg tablet 100 mcg PO DAILY tab 06/29/21 meclizine 25 mg tablet 25 mg PO DAILY PRN #30 tab 06/29/21 atorvastatin 20 mg PO QDAY 08/15/21 cyanocobalamin (vitamin B-12) 1,000 mcg IM QMONTH 08/15/21 lansoprazole 15 mg PO DAILY 08/15/21 losartan 25 mg PO DAILY 08/15/21 isosorbide mononitrate 30 mg tablet,extended release 24 hr 30 mg PO DAILY #30 tab 08/21/21 metoprolol tartrate 25 mg tablet 25 mg PO BID #60 tab 08/21/21 Hospital Course Procedures Cardiac catheterization and - (Cardiac Cath: FFR) Summary of Care Provided Minutes Spent on Discharge: 45 Hospital Course: The patient to [facility] for evaluation of her ongoing chest discomfort and an abnormal pharmacologic stress nuclear imaging study. She underwent evaluation with diagnostic cardiac catheterization. She was found to have ostial stenosis of diagonal branch #1. She subsequently underwent FFR of this lesion which was reported at 0.91-considered nonhemodynamically significant. She did not undergo PCI of this lesion. It was elected to initiate medical therapy and monitor her response. She was monitored in the hospital overnight. She remained in sinus rhythm with AV synchronous pacing. She appeared to remain hemodynamically stable. She appeared to be tolerating her medications with respect to the initiation of nitrates and beta- blockers. On this day it was felt the patient was stable for release home for continued outpatient follow-up as well as to proceed with her upcoming carotid artery surgery on 08-27-2021. In preparation for this she will place her anticoagulant therapy with apixaban/Eliquis on hold and resume following her surgery as directed. Physical Exam Const alert, oriented x3 and no apparent distress General Appearance: cooperative, comfortable, well kempt and well developed HEENT normocephalic, head/scalp atraumatic and hearing grossly normal bilaterally Head and Scalp: normal to inspection, normocephalic and atraumatic Eyes PERRL, EOMs intact bilaterally, conjunctivae normal and no scleral icterus Neck full ROM and no JVD Resp normal respiratory effort and clear to auscultation bilaterally Cardio regular rate, regular rhythm, S1 normal heart sound and S2 normal heart sound Rhythm: abnormal rhythm ectopic beats GI normal to inspection, nondistended, normoactive bowel sounds Extremity no pedal edema Peripheral Pulses: Yes radial pulses present right (No obvious bruits: No obvious hematoma) 2+ and femoral pulses present right (No obvious bruits: No obvious hematoma) 2+ Skin no rashes or lesions noted Neuro oriented x3, moves all extremities, no focal motor deficits and no sensory deficits noted Weight / BMI Weight Weight: 215 lb 13.321 oz Body Mass Index (BMI) 39.2 ABG / Lab / Microbiology Data Result Diagrams: 08/22/21 05:54 08/22/21 05:54 Laboratory: Laboratory Results - last 24 hr 08/22/21 05:54: WBC 8.0, RBC 3.52 L, Hgb 10.1 L, Hct 31.6 L, MCV 89.8, MCH 28.7, MCHC 32.0, RDW Std Deviation 44.4 H, RDW Coeff of [place] 13.6, Plt Count 308, MPV 10.4, Immature Gran % (Auto) 0.500, Neut % (Auto) 66.6, Lymph % (Auto) 22.3, [place] % (Auto) 9.0, Eos % (Auto) 1.0, Baso % (Auto) 0.6, Absolute Neuts (auto) 5.3, Absolute Lymphs (auto) 1.78, Nucleated RBC % 0 08/22/21 05:54: Sodium 140, Potassium 3.7, Chloride 109 H, Carbon Dioxide 26.0, Anion Gap 5, BUN 13, Creatinine 1.04 H, Estim Creat Clear Calc 34.50, Est GFR (MDRD) Af Amer 65, Est GFR (MDRD) Non-Af 54 L, BUN/Creatinine Ratio 12.5, Glucose 94, Calcium 8.0 L D/C Instructions Discharge Diet: Low fat / Low cholesterol Weight Bearing Status: - (avoid heavy exertional activity x 2 weeks then advance activity as tolerated unless otherwise directed) Call your doctor if your incision/area has: Continuous Slow Oozing, Sudden Increased Bleeding, Increased Pain/ Swelling, Increased Redness, Foul Smelling Discharge and Swelling at the incision site Call your doctor if you observe: Fever of 101 or Higher, Shortness of breath, Dizziness, Fainting spells, Swelling in the ankles, Chest pain, Increased palpitations (irregular heartbeat), Calf discomfort and Uncontrolled pain Cleanse incision/area with: Soap & Water Additional Dressing/Incision Instructions: Medication: Hold apixaban/eliquis pending upcoming carotid artery surgery on 08/27/21 then resume following surgery as directed Please Follow Up With: Jerry Osorio MD When: 10/17/21: Pacemaker check: 1:00 PM 10/25/21: Office visit: 1:00 PM Meaningful Use Info Meaningful Use Diagnoses (Choose all that apply): None applicable Discharge Plan Admission Admit Date/Time: 08/21/21 18:32 Primary Reason for Your Visit: Abnormal Stress Test Attending Provider: Jerry Osorio Primary Care Provider: Carrillo Franklin Consulting Providers: Lu Wright Discharge Orders/Prescriptions Prescriptions: Continued furosemide 40 mg tablet 40 mg PO QDAY PRN (Reason: swelling) RF: 0 levothyroxine 112 mcg tablet 100 mcg PO DAILY RF: 0 gabapentin 600 mg tablet 600 mg PO TID PRN (Reason: Pain) RF: 0 meclizine 25 mg tablet 25 mg PO DAILY PRN (Reason: dizziness) Qty: 30 RF: 3 montelukast 10 mg tablet 10 mg PO DAILY RF: 0 aspirin [Adult Aspirin Regimen] 81 mg tablet,delayed release (DR/EC) 81 mg PO DAILY RF: 0 cyanocobalamin (vitamin B-12) 1,000 mcg/mL Solution 1,000 mcg IM QMONTH RF: 0 atorvastatin 20 mg tablet 20 mg PO QDAY RF: 0 losartan 25 mg tablet 25 mg PO DAILY RF: 0 lansoprazole 15 mg Capsule,Delayed Release(Dr/Ec) 15 mg PO DAILY RF: 0 isosorbide mononitrate 30 mg tablet extended release 24 hr 30 mg PO DAILY Qty: 30 RF: 12 metoprolol tartrate 25 mg tablet 25 mg PO BID Qty: 60 RF: 12 Discontinued apixaban 2.5 MG tablet 2.5 mg PO BID RF: 0 Referrals / Follow Up: Carrillo Franklin MD [Primary Care Provider] - Jerry Osorio MD [STAFF PHYSICIAN] -
[2021-08-22] MEDS: Aspirin 81 MG TAB.CHEW PO (09:40)
[2021-08-22] MEDS: Pantoprazole Sodium 20 MG Tablet PO (09:41)
== END 2021-08-22 08:46 | disposition home or self-care (01) ==
LOC: PCU 18:45 → CLSP 08-22 09:18 → PCU 08-22 09:18
PROVIDERS: Anesthesiology; Physician Assistant Medical; Admitting Provider Internal Medicine Cardiovascular Disease; PCP Family Medicine; Referring Provider Internal Medicine Cardiovascular Disease; Visit Provider Internal Medicine Cardiovascular Disease
DX: I25.10 Atherosclerotic heart disease of native coronary artery without angina pectoris (principal); M19.90 Unspecified osteoarthritis, unspecified site; E78.5 Hyperlipidemia, unspecified; K21.9 Gastro-esophageal reflux disease without esophagitis; J45.909 Unspecified asthma, uncomplicated; G47.33 Obstructive sleep apnea (adult) (pediatric); I48.0 Paroxysmal atrial fibrillation; E03.9 Hypothyroidism, unspecified; I12.9 Hypertensive chronic kidney disease with stage 1 through stage 4 chronic kidney disease, or unspecified chronic kidney disease; N18.30 Chronic kidney disease, stage 3 unspecified; I65.21 Occlusion and stenosis of right carotid artery; I05.2 Rheumatic mitral stenosis with insufficiency; R94.39 Abnormal result of other cardiovascular function study; I27.20 Pulmonary hypertension, unspecified; Z79.899 Other long term (current) drug therapy; Z79.890 Hormone replacement therapy; Z95.0 Presence of cardiac pacemaker; Z79.01 Long term (current) use of anticoagulants; Z79.82 Long term (current) use of aspirin
CPT/HCPCS: 36415; 80048; 84443; 85025; 93005; 93458; 93571; 99152; 99153; 99218; J0153; J7030; J7040; Q9967; A4216; C1769; C1887; C1894; G0378

== ENCOUNTER 2021-08-27 05:22 | Inpatient (IN) | payer MEDICARE, SELFPAY ==
[2021-05-18 05:10] VITALS: BMI 38.9
[2021-08-27] VITALS (36 sets, daily range): BP systolic 108–162; BP diastolic 49–72; PULSE 60–76; RESP 16–95; TEMP 35.8–36.8; O2SAT 16–100; BMI 37.5
--- NOTE | 2021-08-27 | PLAQ_PTH ---
PATIENT: TRANG LARSON LOC: PCU U#:[id number] AGE/SX: 80/F ROOM: [facility] RE08/27/[address]: Dr. Jaya Watters MD : 1940 BED: 1 DIS: 08/28/2021 SPEC #: [id number] RECD: 08/27/21 14:36 STATUS: CESAR MARIA #: [id number] REGAN: 08/27/21 00:[address]: Jaya Watters DEPT: SURGICAL PATHOLOGY RECD BY: Manuel Choudhary ENTERED: 08/28/21 09:12 SP TYPE: PLAQUE OTHR DR: Dr. Carrillo Franklin MD Tissues: PLAQUE Procedures: Decalcification bone/plaque Surgery Specimen Level III HEADER OPERATION: Carotid endarterectomy with patch angioplasty and arterial PRE-OP DIAGNOSIS: Acute right carotid stenosis TISSUE SUBMITTED: Carotid plaque MICROSCOPIC DIAGNOSIS Carotid plaque, endarterectomy: Pieces of atherosclerotic tissue with focal calcifications (plaque). IMSTY 08/31/21 GROSS DESCRIPTION Received in fixative is one container labeled with the patient's name and designated carotid plaque. The specimen consists of multiple pieces of light yellow indurated tissue that in aggregate measure 2 x 0.6 x 0.4 cm. The entire specimen is submitted in one cassette after decalcification. / MISTY:igor 08/28/2021 TC:5 CPT: 29422, 64259
[2021-08-27] MEDS: Lactated Ringers 1,000 ML 15 ML IV (05:35)
--- NOTE | 2021-08-27 05:39 | PCM.HP.BLA ---
History and Physical Date of Admission: 08/27/21 The patient presents today for anticipated right carotid enterectomy with bovine patch angioplasty. History and physical per surgical standpoint as noted below. The patient has had recent cardiac work-up with cardiac catheterization. She was felt to be capable of proceeding with surgery. She does have a pacemaker in place. She will require ongoing medical treatment of her atherosclerotic cardiovascular disease as well. Her apixaban has been held. As per Dr. Osorio August 21, 2021 Details: TRANG LARSON, is a 80 white female who presents to the [facility] today for a heart catheterization. Patient presented to [facility] 05/26 with 2 further syncopal episodes. She was transferred to [facility] for EP evaluation after monitoring analyst demonstrated intermittent heart block with heart rates in the 30s. She also developed third-degree AV block with narrow complex junctional escape. She underwent a dual chamber pacemaker placement on 05/28/2021. Prior to her PPM she was being worked up for syncope and was noted to have critical stenosis on her right carotid. She is in the process of being scheduled to have surgery on this with Dr. Watters. However this was placed on hold with her pacemaker placement. She did call our office with concerns over lightheadedness and dizziness. Pacemaker interrogation did not demonstrate anything significant. She contact our office in the beginning of August 2021 with chest discomfort. She proceeded with stress test on 08/14/2021 that showed an area of stress-induced myocardial ischemia in the mid anterior segments cannot necessarily be excluded. Thus, she will proceed with heart catheterization to assess further. Pt notes that she is still SOB with exertion. She also notes at times when she is sitting she has chest burning. Similar to what she would have with a stress test. This occurs a few times a day. It can last a few seconds. She has not had any bleeding issues. She is still SOB with any activity. She notes that her dizziness comes and goes. She did use meclizine. This did helped somewhat. She does have an issues with vertigo but has not had this in a while. On August 21, 2021 the patient had a cardiac catheterization per Dr. Jerry Osorio. She had what was felt to be a nonclinically significant all stenosis of the first diagonal branch. No interventional treatment indicated. She was felt to be capable of proceeding with carotid surgery is anticipated on August 27, 2021. Her anticoagulation apixaban is on hold and can be resumed postoperatively. Intake Visit Reasons: update H&P for carotid Chief Complaint: schedule carotid surgery Riffler Tender Required: No Is patient in pain?: No Allergies sulfasalazine [From Azulfidine] Allergy (Intermediate, Verified 08/01/21 13:15) Hives Penicillins [PCN] Allergy (Verified 08/01/21 13:15) Hives Sulfa (Sulfonamide Antibiotics) Allergy (Verified 08/01/21 13:15) Hives Medications apixaban 2.5 mg PO BID tab 07/31/17 [Rx Confirmed 08/01/21] atorvastatin 20 mg tablet 20 mg PO QDAY #90 tab 10/08/18 [Rx Confirmed 08/01/21] furosemide 40 mg tablet 40 mg PO QDAY PRN tab 03/09/21 [History Confirmed 08/01/21] gabapentin 600 mg tablet 600 mg PO TID PRN tab 03/09/21 [History Confirmed 08/01/21] montelukast 10 mg tablet 10 mg PO DAILY tab 03/09/21 [History Confirmed 08/01/21] aspirin 81 mg tablet,delayed release 81 mg PO DAILY 03/21/21 [History Confirmed 08/01/21] levothyroxine 112 mcg tablet 100 mcg PO DAILY tab 06/29/21 [History Confirmed 08/01/21] losartan 25 mg tablet 25 mg PO .COMPLEX #100 tab 06/29/21 [Rx Confirmed 08/01/21] meclizine 25 mg tablet 25 mg PO DAILY PRN #30 tab 06/29/21 [Rx Confirmed 08/01/21] PFSH Medical History ODILIA (acute kidney injury) Arthritis Asthma Atherosclerotic heart disease of [place] coronary artery without angina pectoris Carotid stenosis, right CKD (chronic kidney disease) stage 3, GFR 30-59 ml/min Dyspnea, unspecified Encounter for monitoring anti-arrhythmic therapy Essential hypertension GERD (gastroesophageal reflux disease) History of cardioversion (~01/2019) HLD (hyperlipidemia) Hypothyroidism Long-term use of high-risk medication Nonrheumatic mitral (valve) stenosis Nonrheumatic mitral valve regurgitation PABLO on CPAP Osteoarthritis Paroxysmal atrial fibrillation Presence of permanent cardiac pacemaker Pulmonary hypertension Renal insufficiency Syncope Surgical History History of bilateral knee replacement History of cardiac catheterization History of carpal tunnel surgery History of cataract removal with insertion of prosthetic lens History of cholecystectomy History of hysterectomy History of rotator cuff surgery Tumor of ovary Family History Mother Hypertension Myocardial infarction Sister Diabetes Paroxysmal atrial fibrillation Brother CVA (cerebral vascular accident) Alcohol abuse Cancer Liver CAD (coronary artery disease) Father Alzheimer disease Brother CAD (coronary artery disease) CABG Social History Smoking Status: Never smoker second hand exposure: No alcohol intake: never substance use type: does not use caffeine: Yes Type: coffee Number of servings: 2 HPI HPI HPI: TRANG LARSON, is a 80 F who presents to the office today for an update history and physical. Patient was previously scheduled for right carotid endarterectomy in June, however patient was hospitalized for syncope episode which resulted in pacemaker placement. Patient denies any current chest pain, increased shortness of breath. Patient has been cleared by cardiology. She notes a history of sleep apnea for which she uses a CPAP for. Patient denies any previous complications or side effects from anesthesia. Patient's previous history per Dr. Watters: TRANG LARSON, is a 80 F who presents to the office today for surgical consultation regarding extracranial carotid artery occlusive disease. The patient apparently had an episode of syncope with collapse. She is referred by AQUILES Baltazar?C and a written copy of my surgical consult recommendations will return to her. Approximately March 14, 2021 she was seen at [facility] for a syncopal event. She states that she was sitting inside at the table. A gentleman was evaluating her water softener. She got up excluded him outside and then walked to the garage to see her grandson. She states that she was in the action of turning to sit down in a chair in the garage when which is the last thing she remembered. Apparently she fainted falling backwards hitting the back of her head. She then was evaluated and part of her evaluation included a carotid duplex exam. There was felt to be greater than 70% stenosis on the right and 50-69 percent stenosis on the left as noted below. The problem is that she has multiple attentional sources. She states that she was bradycardic and hypotensive when she arrived. She states that her elderly caregiver ceased her flecainide therapy and ceased her dose Tyzine therapy. She was already on Eliquis at the time of her syncope. She states she had a low-dose aspirin added to her treatment program. She has intermittent slight blurred vision bilaterally. She complains of fatigue. She complains of headache. She states that she already sees Dr. Israel Sanchez locally because of pulmonary hypertension and sleep apnea. As noted below she has aortic valvular disease. She has not yet been seen by a neurologist. She is able to stand up move around and not become dizzy or lightheaded. This is the first episode that she has had and she has not had any recurrent symptoms. She denies any focal motor or sensory loss to either upper extremity. Evaluation that was performed at [facility] in [facility] on March 15, 2021 included a carotid duplex exam. There is felt to be greater than 70% stenosis of the right internal carotid artery with a peak systolic velocity of 309 cm/s flow and end-diastolic velocity of 90. There was felt to be 50 to 69% stenosis on the left with a maximum peak systolic velocity of 200 cm/s flow with an end-diastolic velocity of 69. An echocardiogram suggested left ventricular ejection fraction of 55 to 60%. Thickened calcific aortic valve with restricted opening in systole. Mean gradient 13 mmHg pressure. Calculated aortic valve area of 1.1 cm. Moderate aortic stenosis. Calculated pulmonary artery systolic pressure was 59 mmHg consistent with pulmonary hypertension TRANG LARSON, is a 80 F who presents to the office today for ongoing surgical consultation regarding extracranial carotid artery occlusive disease. The patient has had an outside perform carotid duplex exam and then a CTA of the carotids performed at the [facility]. There was disparate interpretation. I personally felt that there was a weblike stenosis of the proximal right internal carotid on the CTA but it was not interpreted this way. Therefore I obtained a second opinion confirmatory carotid duplex exam locally here at the [facility]. This demonstrated a marked increase in velocity in the mid right internal carotid artery at 322 cm/s flow with an end-diastolic velocity of 83 cm/s. This was felt to be consistent with greater than 70% stenosis. This correlated well with the previous carotid duplex exam performed at [facility] in [facility]. That examination was performed at that time because of a syncopal episode. At that time the peak systolic velocity within the right internal carotid artery was 309 cm/s flow with an end-diastolic velocity of 90. She is on Eliquis and aspirin therapy. April 02, 2021 EXAM: CT ANGIOGRAPHY NECK WITHOUT AND WITH INTRAVENOUS CONTRAST : 1940 CLINICAL INDICATION: Right carotid stenosis TECHNIQUE: Routine carotid CT angiography protocol was performed without and with intravenous contrast. Nascet criteria using the distal ICAs for comparison were used for evaluation of stenoses. This CT exam was performed using one or more of the following dose reduction techniques: automated exposure control, adjustment of the mA and/or kV according to patient size, and/or use of iterative reconstruction technique. This report was created using [employer] report generation technology. MIP reconstructed images were created and reviewed. CONTRAST: IV 100mL Isovue-370 COMPARISON: None. FINDINGS: VASCULATURE: RIGHT COMMON CAROTID ARTERY: Unremarkable. No occlusion or significant stenosis. No dissection. RIGHT INTERNAL CAROTID ARTERY: Calcifications in the carotid bulb bilaterally. No stenosis identified. There are also calcifications seen within the origins of the right internal carotid artery. These narrow the vessel approximately 50%. There is no high-grade stenosis. RIGHT EXTERNAL CAROTID ARTERY: Unremarkable. No occlusion. RIGHT VERTEBRAL ARTERY: Unremarkable. No occlusion or significant stenosis. No dissection. LEFT COMMON CAROTID ARTERY: Unremarkable. No occlusion or significant stenosis. No dissection. LEFT INTERNAL CAROTID ARTERY: See above. LEFT EXTERNAL CAROTID ARTERY: Unremarkable. No occlusion. LEFT VERTEBRAL ARTERY: Unremarkable. No occlusion or significant stenosis. No dissection. GREAT VESSELS OF AORTIC ARCH: Unremarkable. Normal anatomy, patent. NECK: BONES/JOINTS: Unremarkable. SOFT TISSUES: Unremarkable. LUNG APICES: Clear. CAROTID STENOSIS REFERENCE USING NASCET CRITERIA: % ICA stenosis = (1 - narrowest ICA diameter/diameter of distal cervical ICA) x 100. Moderate - 50-69% stenosis. Severe - 70-94% stenosis. Near occlusion - 95-99% stenosis. Occluded - 100% stenosis. CT/CTA Neck W/WO Contrast IMPRESSION: Mild stenosis of the origin the right internal carotid artery of approximately 50% due to calcific plaque. No high-grade stenosis identified. Individualized dose optimization techniques were used for this CT. at 0411 Reported and signed by: Dyllan Lyon MD Electronically Signed: Dyllan Lyon MD at 4:09 EDT Tel , Service support , May 11, 2021 Reason For Study: Carotid stenosis Rt. Velocities/BP Lt. Velocities/BP Prox CCA 76/14.7 cm/sec. Prox CCA 119.3/31.6 cm/sec. Mid CCA 82.5/19.9 cm/sec. Mid CCA 102.8/24.3 cm/sec. Dist CCA 87.7/23.9 cm/sec. Dist CCA 99.2/26.1 cm/sec. Prox ICA 139.6/32.8 cm/sec. Prox ICA 146.7/38.9 cm/sec. Mid ICA 322.6/83.5 cm/sec. Mid ICA 135/38.2 cm/sec. Dist ICA 127/23.6 cm/sec. Dist ICA 134.5/40.2 cm/sec. Rt. ICA/CCA = 3.91. Lt. ICA/CCA = 1.43. Prox ECA 104.7/17.3 cm/sec. Prox ECA 124.7/13.3 cm/sec. Rt. Vert. 56.9/11.4 cm/sec. Lt. Vert. 58.6/16.8 cm/sec. Right Extracranial There is intimal thickening but no significant atherosclerotic plaque noted in the right common carotid artery. There is heterogeneous, irregular atherosclerotic plaque noted in the right internal carotid artery. The atherosclerotic plaque causes acoustic shadowing. The right internal carotid artery is very tortuous. There is homogeneous, smooth atherosclerotic plaque noted in the right external carotid artery. Antegrade flow is noted in the right vertebral artery. Left Extracranial There is intimal thickening but no significant atherosclerotic plaque noted in the left common carotid artery. There is heterogeneous, irregular atherosclerotic plaque noted in the left internal carotid artery. The left internal carotid artery is very tortuous. There is intimal thickening but no significant atherosclerotic plaque noted in the left external carotid artery. Antegrade flow is noted in the left vertebral artery. Procedure Carotid Duplex 87610. This is a Carotid Duplex examination using B-mode, color flow and specral Doppler. Prelim called to Marilee STANLEY. Exam performed in department. VL/Carotid Duplex Ultrasound Interpretation Summary Heterogenous irregular plaque at the proximal right internal carotid artery with greater than 70% stenosis. Less than 70% stenosis right external carotid artery Irregular heterogenous plaque at the proximal left internal carotid artery with 50 to 69% stenosis Less than 50% stenosis left external carotid artery Patent and antegrade vertebral arteries bilaterally Ordering Physician: Jaya Watters Referring Physician: Carrillo Franklin Performed By: Nicole Prather RVT April 02, 2021 EXAM: CT ANGIOGRAPHY NECK WITHOUT AND WITH INTRAVENOUS CONTRAST : 1940 CLINICAL INDICATION: Right carotid stenosis TECHNIQUE: Routine carotid CT angiography protocol was performed without and with intravenous contrast. Nascet criteria using the distal ICAs for comparison were used for evaluation of stenoses. This CT exam was performed using one or more of the following dose reduction techniques: automated exposure control, adjustment of the mA and/or kV according to patient size, and/or use of iterative reconstruction technique. This report was created using [employer] report generation technology. MIP reconstructed images were created and reviewed. CONTRAST: IV 100mL Isovue-370 COMPARISON: None. FINDINGS: VASCULATURE: RIGHT COMMON CAROTID ARTERY: Unremarkable. No occlusion or significant stenosis. No dissection. RIGHT INTERNAL CAROTID ARTERY: Calcifications in the carotid bulb bilaterally. No stenosis identified. There are also calcifications seen within the origins of the right internal carotid artery. These narrow the vessel approximately 50%. There is no high-grade stenosis. RIGHT EXTERNAL CAROTID ARTERY: Unremarkable. No occlusion. RIGHT VERTEBRAL ARTERY: Unremarkable. No occlusion or significant stenosis. No dissection. LEFT COMMON CAROTID ARTERY: Unremarkable. No occlusion or significant stenosis. No dissection. LEFT INTERNAL CAROTID ARTERY: See above. LEFT EXTERNAL CAROTID ARTERY: Unremarkable. No occlusion. LEFT VERTEBRAL ARTERY: Unremarkable. No occlusion or significant stenosis. No dissection. GREAT VESSELS OF AORTIC ARCH: Unremarkable. Normal anatomy, patent. NECK: BONES/JOINTS: Unremarkable. SOFT TISSUES: Unremarkable. LUNG APICES: Clear. CAROTID STENOSIS REFERENCE USING NASCET CRITERIA: % ICA stenosis = (1 - narrowest ICA diameter/diameter of distal cervical ICA) x 100. Moderate - 50-69% stenosis. Severe - 70-94% stenosis. Near occlusion - 95-99% stenosis. Occluded - 100% stenosis. CT/CTA Neck W/WO Contrast IMPRESSION: Mild stenosis of the origin the right internal carotid artery of approximately 50% due to calcific plaque. No high-grade stenosis identified. Individualized dose optimization techniques were used for this CT. at 0411 Reported and signed by: Dyllan Lyon MD Electronically Signed: Dyllan Lyon MD at 4:09 EDT Tel , Service support , ROS General General: Yes fatigue; No weight change, appetite, colon cancer, breast cancer or weakness HEENT HEENT: No difficulty swallowing, eye injury, eye surgery, swollen glands or hoarseness Endo Endocrine: Yes thyroid disease; No diabetes mellitus, thyroid cancer, Hair loss, heat intolerance or cold intolerance Skin Skin: No rash or changing moles Breast Breast: No left breast lump, right breast lump, nipple discharge, breast pain, abnormal mammogram, abnormal US or breast enlargement Musc Musculoskeletal: Yes back problems and arthritis; No rheumatoid arthritis, gout or joint pain Cardio Cardiovascular: Yes atrial fibrillation and high blood pressure; No murmur, pacemaker, heart disease, heart attack, heart stent, palpitations, shortness of breat with exertion or chest pain Psych Psychiatric: No depression, anxiety or hearing voices Resp Respiratory: Yes shortness of breath, Yes sleep apnea, No cough, No COPD, Yes asthma, No emphysema and No wheezing Gastro Gastrointestinal: No abdominal pain, No nausea or vomiting, No diarrhea, No constipation, No blood in stool, Yes acid reflux, No hemorrhoids, No ulcers, No gallbladder problem and No black,tarry stools Obdulio Hematologic: Yes blood thinners, No blood disorders, No bleeding, No anemia and No blood clots Neuro Neurologic: No system reviewed and no additional complaints, except as documented, No as per HPI, No abnormal gait, No abnormal hearing, No abnormal movements, No abnormal speech, No behavioral changes, No burning sensations, No confusion, No convulsions, No disequilibrium, No dizziness, No localized weakness, No frequent falls, No headache(s), No lack of coordination, No loss of vision, No memory loss, Yes numbness, No other visual disturbances, No radicular pain, No restless legs, No sensory deficit, No syncope, Yes tingling, No tremor(s), No weakness and No other Exam Const General: cooperative, healthy appearing, comfortable and no acute distress HENMT Head: normal to inspection Eyes General: appearance normal, both eyes and all related structures Neck Neck: normal visual inspection Neck mass: No Resp Effort & Inspection: normal respiratory effort Auscultation: clear to auscultation bilaterally Cardio Rate: regular rate Rhythm: regular rhythm GI Inspection: normal to inspection Palpation: soft Auscultation: normal bowel sounds Skin General: no rashes or lesions noted Neuro General: no focal motor deficits and CN's II-XI intact bilaterally Extrem General: normal to inspection Psych Appearance: grossly normal Affect: normal affect COVID (Procedure Consent) Procedure Criteria Procedure Criteria: Yes Elective The surgeon/proceduralist and patient have discussed in detail the risk of exposure to and/or potential harm posed by the COVID-19 virus with having a surgery/procedure at this time versus the risk of delaying the surgery/procedure. It is not possible to know either the risk of delaying the surgery or procedure or chance of getting an infection with perfect accuracy, but a joint decision was made between the patient and the surgeon/proceduralist to proceed at this time with the scheduled surgery/procedure as indicated on the consent form. Assessment and Plan Assessment and Plan (1) Carotid stenosis, right: Status: Acute Plan - SHERRY IqbalC: Dr. Watters will plan to perform a right carotid endarterectomy with bovine patch angioplasty and arterial line placement. Procedure details, risks and benefits have been reviewed. Patient verbally understands and agrees with the plan. Patient is on Eliquis and will hold this medication for 2 days prior to the procedure. I have re-examined the patient. There are no clinical changes since date of exam. Jaya Watters M.D., F.A.C.S.
--- NOTE | 2021-08-27 06:26 | OP.PCM_ITS ---
Problems Associated Problem List Diagnoses (1) Syncope: (2) Carotid stenosis, right: Report of Operation Date of Procedure: 08/27/21 Pre-Operative Diagnosis: Critical stenosis right internal carotid artery with syncope Post-Operative Diagnosis: Same Surgery/Procedure Performed:: Left radial arterial line placement Right carotid endarterectomy with bovine patch angioplasty Vascu-Guard reference [id number] PN #[id number] Lot number [id number] Description of Surgical Findings:: Timeout and informed consent was obtained. At the bedside on test performed demonstrating adequate ulnar flow left wrist was gently extended prepped with Betadine under ultrasound guidance 1% lidocaine was instilled as local anesthetic then a 20-gauge Angiocath was inserted and using Seldinger wire technique was advanced. I then exchanged out 20/20 gauge arrow Angiocath. That was secured the skin with 3-0 silk. It was connected to pressure tubing. OpSite dressing was applied followed by Marlee wrap. Hand was viable to completion good waveform was obtained no apparent complication. The patient was subsequently taken to the operating room and placed supine on the table. She underwent general endotracheal intubation esthesia. Clindamycin 900 mg were given intravenously. The right neck was sterilely prepped and draped. An oblique incision was made along the anterior aspect of the right sternocleidomastoid and sharp dissection carried down through the subcutaneous tissue. Sharp and blunt dissection was used to deflect the sternocleidomastoid laterally and dissection was performed directly down upon the common carotid. The dissection was very tedious. There is inflammation surrounding the carotid bulb and proximal internal carotid. The internal carotid was tortuous. Sharp and blunt dissection was used to identify the hypoglossal nerve which was elevated. Dacron tape normal toe tourniquet placed around the internal carotid vessel loop around the external carotid Vicryl around the superior thyroid and the Dacron tape Corral securement was placed around the common carotid. The patient received 10,000 units of heparin weight-based. After adequate circulating time a Ca staneda clamp was placed on the internal carotid peripheral vascular clamps on the common carotid external carotid limb blade was used to make an arteriotomy. There was a tight webbing identified. I attempted to place a #8 USCI style shunt however it would not easily advance so I ceased. I then did not get any backflow for his initially I did. Carefully inspected the vessel at this point elected to pursue the endarterectomy thinking that the vessel with spasm. The plaque was sharply transected proximally and then was removed in fragments. Adel that I had a reasonable dissection plane at the internal carotid and 2 tacking sutures of 7-0 Prolene were placed. I then placed a Vascu-Guard bovine patch shaped to form did a patch angioplasty of a running 6-0 Prolene. Prior to completion of this was copiously irrigated and clamps were temporarily removed there was good inflow and then there was good backflow from both the external/internal carotid. Patch angioplasty was completed initial flow into the external carotid common carotid find the internal carotid. Single repair suture of 7-0 Prolene was used. I then had noninvasive vascular ultrasound in the room and prepared the Doppler probe with a sterile sheath inspected the internal carotid good flow was identified. The patch site could be identified there was no evidence of any intimal problems that appear to be widely patent at the site of the patch angioplasty. As far as I could go cephalad there appeared to be good flow. The patient then received a total of 30 mg of protamine. I used Surgicel several times applied pressure waited finally at the completion of the procedure I placed a final Surgicel. I then proximal to the room I approximated platysma with a running 3-0 Vicryl. The skin edges recommend subicular 4 Monocryl. Steri- Strips applied. The periincisional wound was anesthetized with 20 cc of 0.5% Marcaine. Telfa and tape dressings applied. Sponge and instrument and needle counts were reported to surgically correct. Specimens plaque. Drains none. Blood loss 200 cc. She awoke on the table and appeared to be completely neurologically intact. She was taken to the recovery area in satisfactory addition without apparent complication. Jaya Watters M.D., F.A.C.S. Surgeon: Jaya Watters Type of Anesthesia: General and Local Anesthesiologist: Ramon Santiago
--- NOTE | 2021-08-27 06:52 | DCINST_ITS ---
Discharge Instructions Diet Discharge Diet: Light diet - advance as tolerated Activity Discharge Activity: May Not Drive (For 5 to 7 days), May Not Shower (For 3 days) and May Take a Tub Bath Weight Bearing Status: Full weight bearing Dressing / Incision Call your doctor if your incision/area has: Continuous Slow Oozing, Sudden Increased Bleeding and Increased Pain/ Swelling Call your doctor if you observe: Fever of 101 or Higher Suture Line Care: Avoid Pulling/Pushing Change Dressing in: 1 day (You may apply a dry gauze cover dressing to your incision as needed to protect from clothing irritation. Change as needed) Remove Dressing in: 1 week (Leave your Steri-Strips in place for 1 week then you may remove) Follow Up Care Please Follow Up With: Jaya Watters MD When: Approximately 10 days. Please call [phone] to arrange for an appointment Test Results: You may remove your gauze dressing tomorrow. Leave the Steri- Strips in place for 1 week. You may shower starting August 31, 2021 Barring any difficulties you may resume your Eliquis on August 30, 2021 Resume your other medications including aspirin today Discharge Plan Admission Admit Date/Time: 08/27/21 05:22 Attending Provider: Jaya Watters Primary Care Provider: Carrillo Franklin Discharge Orders/Prescriptions Prescriptions: No Action furosemide 40 mg tablet 40 mg PO QDAY PRN (Reason: swelling) RF: 0 levothyroxine 112 mcg tablet 100 mcg PO DAILY RF: 0 gabapentin 600 mg tablet 600 mg PO TID PRN (Reason: Pain) RF: 0 meclizine 25 mg tablet 25 mg PO DAILY PRN (Reason: dizziness) Qty: 30 RF: 3 montelukast 10 mg tablet 10 mg PO DAILY RF: 0 aspirin [Adult Aspirin Regimen] 81 mg tablet,delayed release (DR/EC) 81 mg PO DAILY RF: 0 cyanocobalamin (vitamin B-12) 1,000 mcg/mL Solution 1,000 mcg IM QMONTH RF: 0 atorvastatin 20 mg tablet 20 mg PO QDAY RF: 0 losartan 25 mg tablet 25 mg PO DAILY RF: 0 lansoprazole 15 mg Capsule,Delayed Release(Dr/Ec) 15 mg PO DAILY RF: 0 isosorbide mononitrate 30 mg tablet extended release 24 hr 30 mg PO DAILY RF: 0 metoprolol tartrate 25 mg tablet 25 mg PO BID RF: 0
[2021-08-27] MEDS: Lactated Ringers 1,000 ML 100 ML IV ×3 (07:31→13:01)
[2021-08-27] MEDS: Heparin Injection (Vial) 5,000 UNIT/ML VIAL 5000 UNIT (07:55)
[2021-08-27] MEDS: Bupivacaine Mpf 0.5% 30 ML VIAL (09:45)
[2021-08-27] MEDS: Sugammadex Sodium 200 MG/2 ML VIAL IV (09:45)
[2021-08-27] MEDS: Nitro/D5w 25MG/250ML Bottle 25 MG (09:50)
--- NOTE | 2021-08-27 10:51 | SUR.PHASEI ---
PRESSURE HELD TO RIGHT SIDE OF NECK BY ROSA STANLEY FOR APPROXIMATELY 30 MINUTES. PRESSURE RELEASED AT 10:40. DRESSING HAS A SMALL AMOUNT OF SHADOWED RED DRAINAGE THAT WAS MARKED. NO HEMATOMA OR CREPITUS NOTED.
--- NOTE | 2021-08-27 16:27 | SUR.PHASEI ---
AT APPROXIMATELY 1555, LEFT RADIAL ARTERIAL CATHETER DISCONTINUED INTACT. PRESSURE APPLIED TO LEFT WRIST FOR 10 MIN. DSD APPLIED. NO SIGNS OF BLEEDING OR HEMATOMA
--- NOTE | 2021-08-27 17:03 | PCS.PANDOC ---
PANDEMIC DOCUMENTATION INITIATED: Date: 05/21/2021 Time: 190
[2021-08-27] MEDS: Isosorbide Mononitrate 30 MG Tablet PO (17:41)
[2021-08-27] MEDS: Montelukast 10 MG Tablet PO (17:42)
[2021-08-27] MEDS: Metoprolol Tartrate 25 MG Tablet PO ×2 (17:42→21:36)
--- NOTE | 2021-08-27 18:05 | NURSING ---
This RN had pt up to RR and to chair for the first time post op. Pt tolerated well.
[2021-08-27] MEDS: 0.9% Saline Lock 10 ML Syringe IV (18:41)
[2021-08-27] MEDS: Acetaminophen 325 MG Tablet PO (21:36)
[2021-08-28] VITALS (8 sets, daily range): BP systolic 104–126; BP diastolic 54–80; PULSE 58–60; RESP 16–18; TEMP 36.6; O2SAT 93–96
[2021-08-28] MEDS: Levothyroxine 100 MCG Tablet PO (05:43)
--- NOTE | 2021-08-28 05:45 | PCM.PN.SRG ---
Subjective Subjective Patient has no complaints. Using her CPAP mask she was finally able to get some rest. She notes some mild numbness of the right earlobe. She otherwise feels well without acute event. Objective Data Objective Data Vital Signs: Vital Signs Temp Pulse Resp BP Pulse Ox 97.8 F 58 L 16 121/57 H 94 08/28/21 03:10 08/28/21 03:10 08/28/21 03:10 08/28/21 03:10 08/28/21 03:10 Oxygen Flow Rate (L/min) 2 Oxygen Delivery Method Room Air Weight: 211 lb 10.3 oz Body Mass Index (BMI) 37.5 Intake & Output: Intake and Output for Last 24 Hours 08/26/21 08/27/21 08/28/21 23:59 23:59 23:59 Intake Total 3838 / 4078 240 / 240 Balance 3838 / 4078 240 / 240 Physical Exam Const Constitutional Narrative: Right neck appropriately supple, dressings are dry. Assessment & Plan Assessment/Plan (1) Carotid stenosis, right: PLAN: Patient is doing well. Plan discharge today. Plan resumption of Eliquis on August 30, 2021 barring any problems. She will resume her aspirin today She may shower starting August 31, 2021. Office follow-up in 10 days. Dressing will be replaced today and she may remove it tomorrow. Jaya Watters M.D., F.A.C.S.
[2021-08-28 07:16] LABS: ACT Activated Clotting Time 136 sec (74-137)
[2021-08-28 07:19] LABS: ACT Activated Clotting Time 237 sec (74-137)
[2021-08-28] MEDS: Lansoprazole 15 MG Capsule.DR PO (08:08)
[2021-08-28] MEDS: Montelukast 10 MG Tablet PO (08:08)
[2021-08-28] MEDS: Isosorbide Mononitrate 30 MG Tablet PO (08:08)
[2021-08-28] MEDS: Metoprolol Tartrate 25 MG Tablet PO (08:08)
[2021-08-28] MEDS: Aspirin E.C. 81 MG Tablet PO (08:09)
[2021-08-28] MEDS: Atorvastatin Calcium 20 MG Tablet PO (08:09)
[2021-08-28] MEDS: Losartan Potassium 25 MG Tablet PO (08:09)
--- NOTE | 2021-08-28 09:20 | CASEMGMT ---
LIZETH AVILEZ assessment: Face to Face with patient for initial transition planning/care coordination assessment. LIZETH AVILEZ introduced self and role at [facility], pt voices understanding and consents to assessment. Pt is fully dressed and sitting up in chair awaiting discharge. Pt is A/Ox x4 and answers all questions appropriately. Care providers, pharmacy, and demographics verified. Presentation: Pt brought in for right carotid endarterectomy w/ Dr. Watters Admitting dx: Right carotid endarterectomy PCP: St[facility] Specialists: Jo, cardio; Duong, surgeon; franck Sanchez Preferred Pharmacy: [facility] order-pt provided Eliquis 30 day free trial card as pt believes she has not used in the past. [facility]: [facility] Living Will/HPOA: Pt has LW/HPOA and is aware that they are on file at [facility]. Pt's son, Ministerio, is HPOA. LNOK: Maki Kraft, daughter; Maia Kraft, granddaughter Living Arrangements: Pt lives alone in 1 story home with 1 step in and states no concerns at home. Pt is independent with ADL's. Transportation: Pt drives self and states no transportation concerns. DME/HHC: Pt has the following DME: cane, walker, raised toilet seat, grab bars, shower chair w/ WI shower, and cpap thru [employer]. Pt states no need for any further DME. Pt states no hx of HHC but has been to [facility] for rehab in the past. Pt states no concerns with going home at time of discharge. Pt is retired. Pt states does not smoke cigarettes or drink ETOH. Pt voices no further concerns/needs. CM to follow for any further discharge planning/needs. Advised pt to ask for CM if any further questions/concerns/needs arise, voices understanding. Pt Goal: Home Plan[place] LIZETH AVILEZ
== END 2021-08-28 09:55 | disposition home or self-care (01) | DRG 39 ==
LOC: ACINP 12:57 → PCU 16:49
PROVIDERS: Admitting Provider Surgery; PCP Family Medicine; Referring Provider Surgery; Visit Provider Surgery
PROC: 03CK0ZZ Extirpation of Matter from Right Internal Carotid Artery, Open Approach (ICD-10-PCS; CPT 35301; principal; 2021-08-27 07:10)
DX: I65.21 Occlusion and stenosis of right carotid artery (principal); I25.10 Atherosclerotic heart disease of native coronary artery without angina pectoris; G47.30 Sleep apnea, unspecified; Z95.0 Presence of cardiac pacemaker; Z79.02 Long term (current) use of antithrombotics/antiplatelets
CPT/HCPCS: 85347; 88304; 88311; 99251; J7040; J7120; A4216; G0463; J2405

== ENCOUNTER → 2021-09-25 09:51 | Outpatient (CLI) | payer MEDICARE, SELFPAY ==
--- NOTE | 2021-09-25 09:55 | CDUL_ITS ---
Reason For Study: carotid stenosis Rt. Velocities/BP Prox CCA 81.2/20.0 cm/sec. Mid CCA 76.0/12.1 cm/sec. Dist CCA 78.6/22.6 cm/sec. Prox ICA 101.0/18.8 cm/sec. Mid ICA 102.3/34.8 cm/sec. Dist ICA 108.7/33.1 cm/sec. Rt. ICA/CCA = 1.4. Prox ECA 110.1/7.9 cm/sec. Rt. Vert. 36.6/10.2 cm/sec. Right Extracranial There is intimal thickening but no significant atherosclerotic plaque noted in the right common carotid artery. There is intimal thickening but no significant atherosclerotic plaque noted in the right internal carotid artery. The right internal carotid artery is very tortuous. There is intimal thickening but no significant atherosclerotic plaque noted in the right external carotid artery. Antegrade flow is noted in the right vertebral artery. Procedure Carotid Duplex 89421. This is a Carotid Duplex examination using B-mode, color flow and specral Doppler. The exam was diagnostic. Exam performed in department. VL/Carotid Unilateral Interpretation Summary Postoperative changes of the right carotid bulb and proximal internal carotid a rtery Less than 50% stenosis right proximal internal carotid artery Less than 50% stenosis right external carotid artery Patent antegrade right vertebral Notable improvement of the right carotid from the previous examination of [place] bermudez 2020 Ordering Physician: Jennyfer Chaney Performed By: Osmel Eldridge RVT
== END ==
PROVIDERS: PCP Family Medicine; Referring Provider Physician Assistant; Visit Provider Physician Assistant
DX: I65.21 Occlusion and stenosis of right carotid artery (principal)
CPT/HCPCS: 93882

== ENCOUNTER → 2022-10-04 | Outpatient (CLI) | payer MEDICARE, SELFPAY ==
--- NOTE | 2022-10-04 12:48 | CDU_ITS ---
Reason For Study: Carotid Stenosis Rt. Velocities/BP Lt. Velocities/BP Prox CCA 71/14 cm/sec. Prox CCA 94/24 cm/sec. Mid CCA 56/14 cm/sec. Mid CCA 81/19 cm/sec. Dist CCA 67/19 cm/sec. Dist CCA 70/22 cm/sec. Prox ICA 125/30 cm/sec. Prox ICA 122/38 cm/sec. Mid ICA 104/27 cm/sec. Mid ICA 122/32 cm/sec. Dist ICA 62/18 cm/sec. Dist ICA 41/14 cm/sec. Rt. ICA/CCA = 2.2. Lt. ICA/CCA = 1.5. Prox ECA 270/12 cm/sec. Prox ECA 105/13 cm/sec. Rt. Vert. 42/12 cm/sec. Lt. Vert. 41/12 cm/sec. Right Extracranial There is homogeneous, smooth atherosclerotic plaque noted in the right common carotid artery. There is homogeneous, smooth atherosclerotic plaque noted in the right internal carotid artery. The right internal carotid artery is very tortuous. There is heterogeneous, smooth atherosclerotic plaque noted in the right external carotid artery. Antegrade flow is noted in the right vertebral artery. Heterogeneous, non vascular structure noted Rt Thyroid measuring 1.21cm x 1.21cm. Left Extracranial There is intimal thickening but no significant atherosclerotic plaque noted in the left common carotid artery. There is heterogeneous, irregular atherosclerotic plaque noted in the left internal carotid artery. The left internal carotid artery is very tortuous. There is homogeneous, smooth atherosclerotic plaque noted in the left external carotid artery. Antegrade flow is noted in the left vertebral artery. Procedure Carotid Duplex 86031. This is a Carotid Duplex examination using B-mode, color flow and specral Doppler. Exam performed in department. VL/Carotid Duplex Ultrasound Interpretation Summary Postoperative smooth plaque of the proximal right internal carotid artery with minimally elevated velocities consistent with postoperative change and likely less than 50% stenos is.. Significant tortuosity of the right internal carotid. Greater than 50% stenosis right external carotid. Solid cystic right thyroid nodule measuring 1.21 x 1.21 cm in diameter Irregular plaque of the proximal left internal carotid artery with less than 50 % stenosis. Tortuous left internal carotid artery. Less than 50% stenosis left external carotid artery Patent and antegrade vertebral arteries bilaterally Ordering Physician: Jaya Watters Referring Physician: Crarillo Franklin Performed By: Chacha Benson, [place], RVT
== END | disposition home or self-care (01) ==
LOC: CVS 12:47
PROVIDERS: PCP Family Medicine; Visit Provider Surgery
DX: I65.23 Occlusion and stenosis of bilateral carotid arteries (principal); I77.1 Stricture of artery
CPT/HCPCS: 93880

== ENCOUNTER → 2022-11-07 | Outpatient (CLI) | payer MEDICARE, SELFPAY ==
--- NOTE | 2022-11-07 14:27 | US_ITS ---
STUDY: THYROID ULTRASOUND REASON FOR EXAM: Female, 81 years old. Thyroid nodule TECHNIQUE: Ultrasound evaluation of the thyroid was performed with real-time and static carlin-scale imaging. COMPARISON: None. FINDINGS: RIGHT LOBE: The right lobe of the thyroid gland is enlarged and measures 5.2 cm x 2.1 cm x 2.2 cm. There is a heterogeneous echotexture. Multiple hypoechoic nodules are seen scattered throughout the right lobe of the thyroid. The largest nodule measures 1.2 cm x 1.1 cm x 1.1 cm. This is in the upper pole. This is a complex solid and cystic mass. Biopsy recommended. LEFT LOBE: The left lobe of the thyroid gland measures 4.9 cm x 1.9 cm x 1.8 cm. There is a heterogeneous echotexture and multiple small nodules are seen. No distinct measurable nodules present.. There are no demonstrated solid, cystic or complex lesions. ISTHMUS: The isthmus is enlarged and measures 6 mm. The regional lymph nodes are normal. US/Thyroid IMPRESSION: Enlarged right lobe of the thyroid with a complex solid and cystic nodule measuring 1.2 cm x 1.17 x 1.1 cm in the upper pole. Biopsy recommended. Electronically Signed: Raman King MD at 15:08 EST ,
== END | disposition home or self-care (01) ==
LOC: US 14:26
PROVIDERS: PCP Family Medicine; Referring Provider Surgery; Visit Provider Surgery
DX: E04.1 Nontoxic single thyroid nodule (principal)
CPT/HCPCS: 76536

== ENCOUNTER → 2022-11-15 | Outpatient (CLI) | payer MEDICARE, SELFPAY ==
--- NOTE | 2022-11-15 08:00 | ASPS_PTH ---
PATIENT: TRANG LARSON [facility] U#:[id number] AGE/SX: 81/F ROOM: RE11/15/[address]: Dr. Jaya Watters MD : 1940 BED: DIS: 11/15/2022 SPEC #: [id number] RECD: 11/15/22 14:25 STATUS: CESAR CANDACE #: [id number] REGAN: 11/15/22 08:[address]: Jaya Watters DEPT: CYTOLOGY RECD BY: Rosemarie Berman ENTERED: 11/18/22 11:13 SP TYPE: ASPIRATION OTHR DR: Dr. Carrillo Franklin MD Tissues: Thyroid gland, NOS Procedures: Special Stain Group II Cytology Other HEADER OPERATION: Right thyroid fine needle aspiration PRE-OP DIAGNOSIS: Right thyroid nodule TISSUE SUBMITTED: Right thyroid nodule tissue x6 slides DIAGNOSIS CYTOLOGY Right thyroid nodule, fine needle aspiration (smears): Adequate for evaluation. Atypia of undetermined significance ([place] Category III). See comment. AM: igor 11/19/2022 COMMENT The [place] System for thyroid diagnostic categorization was used in the evaluation of this case. The specimen is adequate for evaluation. Multi-gene next-generation sequencing panel is recommended for this lesion. This recommendation was communicated to the physician's office. CYTOLOGY STUDY Slides are reviewed. CYTOLOGY GROSS Received are six smears labeled with the patient's name and designated per the requisition as right thyroid nodule tissue. Submitted for staining. / igor 11/18/2022 TC:? CPT: 23191
== END | disposition home or self-care (01) ==
LOC: LABSPEC 14:32
PROVIDERS: PCP Family Medicine; Referring Provider Surgery; Visit Provider Surgery
DX: E04.1 Nontoxic single thyroid nodule (principal)
CPT/HCPCS: 88161; 88313

== ENCOUNTER → 2023-04-03 | Outpatient (CLI) | payer MEDICARE, SELFPAY ==
[2023-04-03 12:58] VITALS: PULSE 62; PULSE 68; PULSE 77; PULSE 78; PULSE 80; PULSE 82; PULSE 83; O2SAT 95; O2SAT 97; O2SAT 98; O2SAT 99
--- NOTE | 2023-04-04 11:00 | WT_ITS ---
PSN 6 Minute Walk Test 6 Minute Walk Test 6 Minute Walk Test: 6 Minute Walk Test PSN:6-Minute Walk Test Start: 04/03/23 12:58 Freq: Status: Active Protocol: RESP.6MINW Document 04/03/23 12:58 [facility] (Rec: 04/03/23 13:01 [facility] [id number]) 6 Minute Walk Test Date Performed 04/03/23 Time Performed 12:30 Height 5 ft 3.5 in Weight: 219 lb Weight in Pounds 219.[address]: Israel Sanchez Assistive device used: Cane Pre-test Oxygen Delivery Method Room Air Pulse Ox 98 Pulse Rate (60-100) 62 Dyspnea Edgar Scale (0-10) 3 Reported Symptoms Increased Work of Breathing 1st minute Oxygen Delivery Method Room Air Pulse Ox 98 Pulse Rate (60-100) 77 Dyspnea Edgar Scale (0-10) 5 Number of Rests Taken 1 Reported Symptoms Increased Work of Breathing 2nd minute Oxygen Delivery Method Room Air Pulse Ox 99 Pulse Rate (60-100) 78 Dyspnea Edgar Scale (0-10) 5 Number of Rests Taken 1 Reported Symptoms Increased Work of Breathing 3rd minute Oxygen Delivery Method Room Air Pulse Ox 99 Pulse Rate (60-100) 82 Dyspnea Edgar Scale (0-10) 5 Number of Rests Taken 1 Reported Symptoms Increased Work of Breathing 4th minute Oxygen Delivery Method Room Air Pulse Ox 97 Pulse Rate (60-100) 82 Dyspnea Edgar Scale (0-10) 6 Number of Rests Taken 2 Reported Symptoms Increased Work of Breathing 5th minute Oxygen Delivery Method Room Air Pulse Ox 98 Pulse Rate (60-100) 83 Dyspnea Edgar Scale (0-10) 5 Number of Rests Taken 1 Reported Symptoms Increased Work of Breathing 6th minute Oxygen Delivery Method Room Air Pulse Ox 95 Pulse Rate (60-100) 80 Dyspnea Edgar Scale (0-10) 5 Number of Rests Taken 1 Reported Symptoms Increased Work of Breathing Post-test Oxygen Delivery Method Room Air Pulse Ox 98 Pulse Rate (60-100) 68 Dyspnea Edgar Scale (0-10) 4 Reported Symptoms Increased Work of Breathing Full Laps Walked 10 Partial Lap, Number of Tiles Walked 22 Total Distance Walked (ft) 612 Interpretation Interpretation: The patient ambulated 612 feet over the course of 6 minutes beginning on room air with the use of a cane. Pretesting oxygen saturation was noted to be 98% on room air. With ambulation, the william oxygen saturation was 95%. Although there was evidence of impaired walk distance, there was no significant exertional oxygen desaturation. Recommendations Recommendations: There is no indication for the use of supplemental oxygen at this time.
== END | disposition home or self-care (01) ==
PROVIDERS: PCP Family Medicine; Referring Provider Internal Medicine Critical Care Medicine; Visit Provider Internal Medicine Critical Care Medicine
DX: I27.20 Pulmonary hypertension, unspecified (principal)
CPT/HCPCS: 94618

== ENCOUNTER → 2023-10-16 | Outpatient (CLI) | payer MEDICARE, SELFPAY ==
--- NOTE | 2023-10-16 10:53 | US_ITS ---
INDICATION: thyroid nodule EXAMINATION: Ultrasound US Thyroid (eg thyroid, parathyroid, parotid) TECHNIQUE: Neal scale and color doppler imaging was performed of the thyroid gland. COMPARISON: 11/07/2022 FINDINGS: RIGHT THYROID LOBE: Measures 4.2 x 2.1 x 2.3 cm. Homogeneous echotexture with normal vascularity. [There is a 1.2 cm mostly solid isoechoic taller than wide well-circumscribed nodule in the superior pole. LEFT THYROID LOBE: Measures 4.4 x 2.1 x 2 cm. Homogeneous echotexture with normal vascularity. [No thyroid nodules are present. ISTHMUS: Measures 3 mm. No thyroid nodules are present. US/Thyroid IMPRESSION: Stable 1.2 cm TI-RADS 4 solid nodule in the superior pole of the right lobe is moderately suspicious. Recommend additional follow-up ultrasound in one year. Electronically Signed: Mitch Rothman MD at 17:01 EST ,
--- NOTE | 2023-10-16 10:53 | CDU_ITS ---
Reason For Study: carotid stenosis Rt. Velocities/BP Lt. Velocities/BP Prox CCA 58.9/14.5 cm/sec. Prox CCA 103.6/19.0 cm/sec. Mid CCA 59.8/16.3 cm/sec. Mid CCA 90.5/23.4 cm/sec. Dist CCA 62.6/15.4 cm/sec. Dist CCA 80.6/20.1 cm/sec. Prox ICA 124.7/27.9 cm/sec. Prox ICA 128.4/27.9 cm/sec. Mid ICA 70.6/19.3 cm/sec. Mid ICA 102.4/26.2 cm/sec. Dist ICA 89.6/18.9 cm/sec. Dist ICA 93.7/26.1 cm/sec. Rt. ICA/CCA = 2.1. Lt. ICA/CCA = 1.4. Prox ECA 279.0/10.7 cm/sec. Prox ECA 150.3/20.6 cm/sec. Rt. Vert. 42.1/9.1 cm/sec. Lt. Vert. 56.4/14.6 cm/sec. Right Extracranial There is homogeneous, smooth atherosclerotic plaque noted in the right common carotid artery. There is homogeneous, smooth atherosclerotic plaque noted in the right internal carotid artery. The right internal carotid artery is very tortuous. There is homogeneous, smooth atherosclerotic plaque noted in the right external carotid artery. Antegrade flow is noted in the right vertebral artery. Left Extracranial There is homogeneous, smooth atherosclerotic plaque noted in the left common carotid artery. There is heterogeneous, irregular atherosclerotic plaque noted in the left internal carotid artery. The left internal carotid artery is very tortuous. There is heterogeneous, irregular atherosclerotic plaque noted in the left external carotid artery. Antegrade flow is noted in the left vertebral artery. Procedure Carotid Duplex [id number]. This is a Carotid Duplex examination using B-mode, color flow and specral Doppler. The exam was diagnostic. Exam performed in department. VL/Carotid Duplex Ultrasound Interpretation Summary Smooth plague at the proximal right internal carotid with 50-69% stenosis, like ly closer to 50% >50% stenosis right external carotid Irregular plague at the proximal left internal carotid with 50-69% stenosis, li bennei closer to 50% <50% stenosis left external carotid Patent, antegrade vertebrals bilaterally No significant change from 10/04/23 Ordering Physician: Jaya Watters Performed By: Osmel Eldridge RVT
== END | disposition home or self-care (01) ==
LOC: CVS 10:53
PROVIDERS: PCP Family Medicine; Referring Provider Surgery; Visit Provider Surgery
DX: E04.1 Nontoxic single thyroid nodule (principal); I65.21 Occlusion and stenosis of right carotid artery
CPT/HCPCS: 76536; 93880